=== PATIENT | male | born 2000 | race Caucasian/White ===

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

== ENCOUNTER 2021-03-03 18:58 | Inpatient (IN) | payer BC ==
[2021-03-03] MEDS ORDERED: BACITRACIN OINT 1 EACH PACKET TOPICAL ONE (19:53)
--- NOTE | 2021-03-03 21:53 | ED ---
Psych HPI - General Chief Complaint: Psychiatric Symptoms Stated Complaint: EPS eval Time Seen by Provider: 03/03/21 19:16 Source: patient Mode of arrival: ambulatory - History of Present Illness Initial Comments: Patient is a 20-year-old male, with history of Asperger's and autistic, presenting to the emergency department for a psychiatric evaluation. Patient states he has been having increasing suicidal thoughts over the past few days. He does admit to cutting himself in his upper legs with a razor. He has done this in the past as well.. He denies any homicidal thoughts. He denies any changes in medication but states they did recently prescribed him a new medication but he has yet to start this. He denies any alcohol or drug use. He is nonsmoker. He has no further complaints at this time. - Related Data Home Medications Medication Instructions Recorded Confirmed Acetaminophen [Tylenol 8 Hour] 650 mg PO Q4H PRN 03/03/21 03/03/21 Escitalopram [Lexapro] 10 mg PO DAILY 03/03/21 03/03/21 Fexofenadine HCl [Norma Allergy] 180 mg PO DAILY 03/03/21 03/03/21 Ibuprofen [Advil] 200 mg PO Q8HR PRN 03/03/21 03/03/21 Melatonin 10 mg PO HS PRN 03/03/21 03/03/21 Multivitamins, Thera [Multivitamin 1 tab PO DAILY 03/03/21 03/03/21 (formulary)] Pseudoephedrine HCl [Sudafed 240 mg PO DAILY PRN 03/03/21 03/03/21 24-Hour] cloNIDine HCL [Catapres] 0.2 mg PO BID 03/03/21 03/03/21 clonazePAM 0.5 mg PO BID PRN 03/03/21 03/03/21 Previous Rx's Medication Instructions Recorded ARIPiprazole IM [Abilify Maintena] 400 mg IM Q28D #1 vial 12/24/20 Escitalopram [Lexapro] 20 mg PO DAILY 30 Days tab 12/24/20 busPIRone HCl [Buspar] 30 mg PO BID 30 Days tab 12/24/20 Allergies Allergy/AdvReac Type Severity Reaction Status Date / Time montelukast [From Singulair] AdvReac suicidal Verified 03/03/21 20:25 Review of Systems ROS Statement: Those systems with pertinent positive or pertinent negative responses have been documented in the HPI. ROS Other: All systems not noted in ROS Statement are negative. Past Medical History Past Medical History: No Reported History Additional Past Medical History / Comment(s): seasonal allergies, aspergers, autistic History of Any Multi-Drug Resistant Organisms: None Reported Past Surgical History: No Surgical Hx Reported Past Anesthesia/Blood Transfusion Reactions: No Reported Reaction Past Psychological History: Anxiety, Depression Smoking Status: Never smoker Past Alcohol Use History: None Reported Past Drug Use History: None Reported General Exam - General Exam Comments Initial Comments: GENERAL: Patient is well-developed and well-nourished. Patient is nontoxic and in no acute distress. HEAD: Atraumatic, normocephalic. EYES: Pupils equal round and reactive to light, extraocular movements intact, sclera anicteric, conjunctiva are normal. Eyelids were unremarkable. ENT: TMs normal, nares patent, oropharynx clear without exudates. Moist mucous membranes. NECK: Normal range of motion, supple without lymphadenopathy or JVD. LUNGS: Unlabored respirations. Breath sounds clear to auscultation bilaterally and equal. No wheezes rales or rhonchi. HEART: Regular rate and rhythm without murmurs, rubs or gallops. ABDOMEN: Soft, nontender, normoactive bowel sounds. No guarding, no rebound. No masses appreciated. : Deferred MUSCULOSKELETAL: Normal extremities with adequate strength and normal range of motion, no pitting or edema. No clubbing or cyanosis. NEUROLOGICAL: Patient is alert and oriented x 3. Motor and sensory are also intact. Cranial nerves II through XII grossly intact. Symmetrical smile. Normal speech, normal gait. PSYCH: Normal mood, normal affect. SKIN: Warm, Dry, normal turgor, no rashes. Patient has new and old superficial lacerations to bilateral upper thighs. Patient does have a new or, 6 cm superficial laceration to bilateral upper legs that is a bit more open. It is oozing a little bit of blood but no heavy active bleeding. Limitations: no limitations Course Vital Signs 03/03/21 03/04/21 19:07 02:02 Temperature 98.7 F 98.5 F Pulse Rate 120 H 94 Respiratory 16 20 Rate Blood Pressure 125/69 127/77 O2 Sat by Pulse 99 97 Oximetry Procedures - Procedures Initial comment: Patient has to, 6 cm superficial lacerations, one on either upper thigh. I did clean these wounds, apply Steri-Strips and topical antibiotic. He tolerated procedure well. Medical Decision Making - Medical Decision Making Patient is a 20-year-old male with history of autism, Asperger's, presenting for psychiatric evaluation. He is having suicidal thoughts, increasing over the pa st few days. He does have self-inflicted razor wounds to bilateral upper thighs. I did place Steri-Strips on to these wounds. Denies any drug or alcohol use. His vitals are stable. Patient was evaluated by EPS. Patient will be admitted to the psych unit. - Lab Data Lab Results 03/03/21 03/04/21 Range/Units 21:55 01:33 Urine Opiates Screen Not Detected (NotDetected) Ur Oxycodone Screen Not Detected (NotDetected) Urine Methadone Screen Not Detected (NotDetected) Ur Propoxyphene Screen Not Detected (NotDetected) Ur Barbiturates Screen Not Detected (NotDetected) U Tricyclic Antidepress Not Detected (NotDetected) Ur Phencyclidine Scrn Not Detected (NotDetected) Ur Amphetamines Screen Not Detected (NotDetected) U Methamphetamines Scrn Not Detected (NotDetected) U Benzodiazepines Scrn Not Detected (NotDetected) Urine Cocaine Screen Not Detected (NotDetected) U Marijuana (THC) Screen Not Detected (NotDetected) Coronavirus (PCR) Not Detected (Not Detectd) Disposition Clinical Impression: Suicidal ideation Disposition: TRANSFER TO PSYCH HOSP/UNIT Condition: Stable Is patient prescribed a controlled substance at d/c from ED?: No
[2021-03-03 22:17] LABS: Amphetamine Screen,Urine Not Detected (NotDetected); Barbiturate Screen,Urine Not Detected (NotDetected); Benzodiazepines Screen,Urine Not Detected (NotDetected); Cocaine Screen,Urine Not Detected (NotDetected); Methadone Screen, Urine Not Detected (NotDetected); Opiate Screen,Urine Not Detected (NotDetected); Oxycodone Screen, Urine Not Detected (NotDetected); Phencyclidine Screen,Urine Not Detected (NotDetected); Tricyclic Antidepressant,Urine Not Detected (NotDetected); Urn Cannabinoid Scrn Not Detected (NotDetected)
[2021-03-04] MEDS ORDERED: ACETAMINOPHEN TAB 325 MG TAB PO PRN (01:41)
[2021-03-04] MEDS ORDERED: MAG HYDROX/AL HYDROX/SIMETH 30 ML CUP PO PRN (01:41)
[2021-03-04] MEDS ORDERED: MAGNESIUM HYDROXIDE 2,400 MG/10 ML CUP PO PRN (01:41)
[2021-03-04] MEDS ORDERED: LORazepam 1 MG TAB PO PRN (01:41)
[2021-03-04] MEDS ORDERED: NON FORMULARY DRUG (Acetaminophen [Tylenol 8 Hour] 650 MG Tablet.Er) PO PRN (01:47)
[2021-03-04] MEDS ORDERED: IBUPROFEN 200 MG TAB PO PRN (01:47)
[2021-03-04] MEDS ORDERED: MELATONIN 5 MG TABLET PO PRN (01:47)
[2021-03-04] MEDS ORDERED: clonazePAM 0.5 MG TAB PO PRN (01:47)
[2021-03-04] MEDS: ESCITALOPRAM 20 MG TAB PO SCH (07:59)
[2021-03-04] MEDS: ESCITALOPRAM 10 MG TAB PO SCH (07:59)
[2021-03-04] MEDS: busPIRone HCl 10 MG TAB PO SCH ×2 (08:00→19:33)
[2021-03-04] MEDS: MULTIVITAMINS, THERA 1 EACH TAB PO SCH (08:00)
[2021-03-04] MEDS: LORATADINE 10 MG TAB PO SCH (08:00)
[2021-03-04] MEDS ORDERED: cloNIDine HCL 0.2 MG TAB PO SCH (09:00)
[2021-03-04] MEDS ORDERED: NICOTINE 14MG/24HR PATCH TRANSDERM SCH (09:00)
--- NOTE | 2021-03-04 14:05 | P.CONS ---
History of Present Illness - Reason for Consult Medical clearance - History of Present Illness Patient is a 20-year-old male, with history of Asperger's and autistic, presenting to the emergency department for a psychiatric evaluation and was subsequently admitted to psychiatric floor. Patient was having increasing suicidal thoughts over the past few days. He does admit to cutting himself in his upper legs with a razor. He has done this in the past as well.. He denied any homicidal thoughts. He denies any changes in medication but states they did recently prescribed him a new medication but he has yet to start this. He denies any alcohol or drug use. He is nonsmoker. He has no further complaints at this time. Patient has multiple superficial cuts except for one deep in the left thigh 1 deep on the right side which was glued with a Steri-Strip. Patient does take clonidine for blood pressure Review of Systems REVIEW OF SYSTEMS: CONSTITUTIONAL: No fever, no malaise, no fatigue. HEENT: No recent visual problems or hearing problems. Denied any sore throat. CARDIOVASCULAR: No chest pain, orthopnea, PND, no palpitations, no syncope. PULMONARY: No shortness of breath, no cough, no hemoptysis. GASTROINTESTINAL: No diarrhea, no nausea, no vomiting, no abdominal pain. NEUROLOGICAL: No headaches, no weakness, no numbness. HEMATOLOGICAL: Denies any bleeding or petechiae. GENITOURINARY: Denies any burning micturition, frequency, or urgency. MUSCULOSKELETAL/RHEUMATOLOGICAL: Denies any joint pain, swelling, or any muscle pain. ENDOCRINE: Denies any polyuria or polydipsia. The rest of the 14-point review of systems is negative. Past Medical History Past Medical History: No Reported History Additional Past Medical History / Comment(s): seasonal allergies, aspergers, autistic History of Any Multi-Drug Resistant Organisms: None Reported Past Surgical History: No Surgical Hx Reported Past Anesthesia/Blood Transfusion Reactions: No Reported Reaction Past Psychological History: Anxiety, Depression Smoking Status: Never smoker Past Alcohol Use History: None Reported Past Drug Use History: None Reported Medications and Allergies Home Medications Medication Instructions Recorded Confirmed Type ARIPiprazole IM [Abilify Maintena] 400 mg IM Q28D #1 vial 12/24/20 03/03/21 Rx Escitalopram [Lexapro] 20 mg PO DAILY 30 Days tab 12/24/20 03/03/21 Rx busPIRone HCl [Buspar] 30 mg PO BID 30 Days tab 12/24/20 03/03/21 Rx Acetaminophen [Tylenol 8 Hour] 650 mg PO Q4H PRN 03/03/21 03/03/21 History Escitalopram [Lexapro] 10 mg PO DAILY 03/03/21 03/03/21 History Fexofenadine HCl [Norma Allergy] 180 mg PO DAILY 03/03/21 03/03/21 History Ibuprofen [Advil] 200 mg PO Q8HR PRN 03/03/21 03/03/21 History Melatonin 10 mg PO HS PRN 03/03/21 03/03/21 History Multivitamins, Thera [Multivitamin 1 tab PO DAILY 03/03/21 03/03/21 History (formulary)] Pseudoephedrine HCl [Sudafed 240 mg PO DAILY PRN 03/03/21 03/03/21 History 24-Hour] cloNIDine HCL [Catapres] 0.2 mg PO BID 03/03/21 03/03/21 History clonazePAM 0.5 mg PO BID PRN 03/03/21 03/03/21 History Allergies Allergy/AdvReac Type Severity Reaction Status Date / Time montelukast [From [facility]] AdvReac suicidal Verified 03/03/21 20:25 Physical Exam Vitals: Vital Signs Temp Pulse Pulse Resp BP BP Pulse Ox 03/04/21 07:55 97.8 F 102 H 18 124/67 95 03/04/21 02:44 98.3 F 101 H 18 125/79 97 03/04/21 02:02 98.5 F 94 20 127/77 97 03/03/21 19:07 98.7 F 120 H 16 125/69 99 Intake and Output 03/03/21 03/04/21 03/04/21 22:59 06:59 14:59 Other: Weight 92.986 kg 92.986 kg PHYSICAL EXAMINATION: GENERAL: The patient is alert and oriented x3, not in any acute distress. Well developed, well nourished. HEENT: Pupils are round and equally reacting to light. EOMI. No scleral icterus. No conjunctival pallor. Normocephalic, atraumatic. No pharyngeal erythema. No thyromegaly. CARDIOVASCULAR: S1 and S2 present. No murmurs, rubs, or gallops. PULMONARY: Chest is clear to auscultation, no wheezing or crackles. ABDOMEN: Soft, nontender, nondistended, normoactive bowel sounds. No palpable organomegaly. MUSCULOSKELETAL: No joint swelling or deformity. EXTREMITIES: No cyanosis, clubbing, or pedal edema. She and has multiple superficial linear cuts in both thighs and a couple lacerations one of them has a steady strip. The other side there is an open laceration which I will do and put is Steri-Stripped. NEUROLOGICAL: Gross neurological examination did not reveal any focal deficits. SKIN: No rashes. Assessment and Plan Plan: -Laceration of the left thigh: Will do the skin and put a Steri-Strip on the probably will not require any antibiotics at this time. -Probable essential hypertension patient was on clonidine which will be switched to Coreg. Considering his age patient will have significant side effects from clonidine. -Acute psychosis and other psychiatric issues and suicidal ideation management as per primary service
[2021-03-04] MEDS: BACITRACIN OINT 1 EACH PACKET TOPICAL SCH (15:30)
[2021-03-04] MEDS: carvediloL 12.5 MG TAB PO SCH (17:33)
--- NOTE | 2021-03-04 17:35 | HP ---
DATE OF SERVICE: 03/04/2021 HISTORY AND PHYSICAL IDENTIFYING DATA: The patient is a 20-year-old male. He resides with his parents. He presented to the ED for evaluation. CHIEF COMPLAINT: The patient was depressed. He was having increasing suicide thoughts over the last few days. He has self-abusive behavior of cutting himself with a razor on his inner thighs. He has a diagnosis of Asperger's disorder. HISTORY OF PRESENTING ILLNESS: The patient was the primary source of information, and to some extent what he provided was limited. He has a significant history of psychiatric issues. He has had several admissions to this facility. The last was December 18 of this year. At that time he was admitted for the cutting behavior. At that time he described having "a rough few weeks." He was not clearly able to identify stress issues at that time that set him off to the point where he cut on himself and then came to the hospital. He is noted to have a past history of a suicide gesture by overdose in May of 2020. He was admitted at that time as well. He is followed by [facility]. Current psychotropic medications include Lexapro 30 mg a day, Buspar 30 mg twice a day and Abilify Maintena 400 mg IM q.28 days, with his last dose 02/15/2021. He also is prescribed Klonopin 0.5 mg twice a day p.r.n. Additionally he is prescribed Catapres 0.2 mg twice a day. The patient indicated that he takes that medication as well as a p.r.n., which he says he takes for stress and anxiety. The patient does describe some stress within the family home. He lives with his parents and also his 12-year-old sister. He suggested that he feels some competition with his sister, though he did not give much detail. The patient was vague as to whether or not he experiences any auditory or visual hallucinations. He did not clearly identify past trauma or post- traumatic issues. He does describe anxiety and some panic. He reports that he has been sleeping fair at night. His appetite is good. He indicated that he has been taking his medications consistently. He tolerates his psychotropic medications. He is admitted for further evaluation. SUBSTANCE USE HISTORY: None reported. PAST MEDICAL HISTORY: The patient reports no current or chronic general health complaints. FAMILY AND SOCIAL HISTORY: The patient did not provide much information regarding his current situation. I would refer the reader to previous admission notes of 06/04/2020 and 06/15/2020 for details. MENTAL STATUS EXAMINATION: Patient sat with a little restlessness. He gave fair eye contact. Psychomotor activity was somewhat slowed. He answered questions with brief responses. He tended to speak in a monotone voice. He did not say much. His answers were short though appropriate. His thoughts were clear and coherent. His affect was flat, his mood depressed. He seemed moderately in distress. There was no immediate evidence for thought disorder. The patient denied any suicidal thinking at the time that I interviewed him, though he acknowledged that he had recent behavior of cutting himself on his inner thighs as a stress relief, not for the intent of killing himself. Cognition was clear. ASSESSMENT: This 20-year-old male is diagnosed with mood disorder and autistic spectrum disorder. Unfortunately we do not have a very clear picture at all of recent events or situations that may be a part of his recent decline. We will benefit from input both from family as well as a [facility]. Strengths include that the patient has a stable family/support system. Weaknesses include recurring struggles with mood disorder and self-abusive behavior. DIAGNOSES: 1. Mood disorder. 2. Rule out major depression without psychotic features. 3. Autistic spectrum disorder. RECOMMENDATIONS: The patient will be admitted for comprehensive medical, psychiatric and psychosocial evaluation. We will engage the patient in individual and group therapeutic activities. I will continue the patient on Lexapro 30 mg a day and BuSpar 30 mg twice a day. We will continue with one-to-one observation due to the risk for patient self- abusing, which has been a persistent problem in his previous admissions as well. We will seek to get further input from family and [facility] in order to better determine the treatment plan and to work towards discharge planning. We will focus on stabilization and discharge planning. MMBAYRONL / DANGELON: [id number] / CASH
[2021-03-05] MEDS: MULTIVITAMINS, THERA 1 EACH TAB PO SCH (08:12)
[2021-03-05] MEDS: BACITRACIN OINT 1 EACH PACKET TOPICAL SCH (08:12)
[2021-03-05] MEDS: busPIRone HCl 10 MG TAB PO SCH ×2 (08:12→21:25)
[2021-03-05] MEDS: ESCITALOPRAM 10 MG TAB PO SCH (08:12)
[2021-03-05] MEDS: ESCITALOPRAM 20 MG TAB PO SCH (08:12)
[2021-03-05] MEDS: LORATADINE 10 MG TAB PO SCH (08:13)
[2021-03-05] MEDS: carvediloL 12.5 MG TAB PO SCH ×2 (08:13→14:52)
[2021-03-05] MEDS ORDERED: HALOPERIDOL LACTATE 5 MG/ML 1 ML VIAL ONE (09:36)
[2021-03-05] MEDS: HALOPERIDOL LACTATE 5 MG/ML 1 ML VIAL IM PRN (09:43)
--- NOTE | 2021-03-05 14:55 | PN ---
PROGRESS NOTE DATE OF SERVICE: 03/05/2021. CHIEF COMPLAINT: The patient was depressed. He was having increasing suicide thoughts over the last few days. He had self-abusive behavior cutting himself with a razor on his inner thighs. He has a diagnosis of Asperger's disorder. INTERVAL HISTORY: Patient has been doing fair. He had a quiet evening yesterday. He slept fairly well last night. Today he has been up. He continues to isolate. He does not attend groups noted. It is noted this morning he started getting quite anxious and then made efforts to take his wounds from his cuts on the thighs. He received Haldol 5 mg IM. He was placed on one-to-one observation. He napped some on and off after receiving the Haldol. He has for the most part been quiet since then. He did not voice any specific complaints or concerns about his situation or medications. He appears to tolerate his psychotropic medications. MENTAL STATUS: Patient was seen earlier in the day. He gave fair eye contact. He was somewhat restless. He answered questions with brief responses. He did not say a lot. His affect was blunted. His mood reserved. He seemed somewhat distressed. It was difficult to assess for thought disorder. He voiced no thoughts of harm at the time I interviewed him. Later on, he was in a more anxious state and making efforts to pick at fresh wounds on his inner thighs. As such, he was placed on one-to-one. He was oriented to his circumstances and surroundings. ASSESSMENT: I will continue current diagnosis and general treatment plan. I will continue to make efforts to engage the patient in individual and group therapeutic activities. I will start the patient on Zyprexa 5 mg 3 times a day. The aim of Zyprexa is to help reduce physiologic stress response relating to his high anxiety state. I would aim to see if the Zyprexa helps augment his antidepressant namely Lexapro. If we do not see improvement in 3-4 days, I would look at possibly switching to an alternative antidepressant. It is noteworthy that clozapine has been a beneficial medication for a variety of patients with autism spectrum disorder that may be a consideration for this patient. We do need to [facility] with [facility]. We will focus on stabilization and discharge planning. MMBAYRONL / DANGELON: [id number] /
[2021-03-05] MEDS: OLANZapine 5 MG TAB PO SCH ×2 (15:04→21:25)
[2021-03-05 16:07] LABS: Basophils % (A) 1 %; Eosinophils # (A) 0.2 k/uL (0-0.7); Eosinophils % (A) 3 %; HCT 45.7 % (39.0-53.0); HGB 15.9 gm/dL (13.0-17.5); Lymphocytes # (A) 3.4 k/uL (1.0-4.8); Lymphocytes % (A) 37 %; MCH 29.7 pg (25.0-35.0); MCHC 34.7 g/dL (31.0-37.0); MCV 85.7 fL (80.0-100.0); Mean Platelet Volume 6.3; Monocytes # (A) 0.5 k/uL (0-1.0); Monocytes % (A) 6 %; Neutrophils # (A) 4.7 k/uL (1.3-7.7); Neutrophils % (A) 53 %; Platelet Count 252 k/uL (150-450); RBC 5.34 m/uL (4.30-5.90); RDW 12.7 % (11.5-15.5)
[2021-03-05 16:18] LABS: ALT 15 U/L (4-49); AST 28 U/L (17-59); African American GFR (CKD) >90 (>60 ml/min/1.73 sqM); Albumin 4.9 g/dL (3.5-5.0); Alkaline Phosphatase 99 U/L (38-126); Anion Gap 11 mmol/L; Blood Urea Nitrogen 17 mg/dL (9-20); Calcium 9.7 mg/dL (8.4-10.2); Carbon Dioxide 24 mmol/L (22-30); Chloride 107 mmol/L (98-107); Cholesterol 192 mg/dL (<200); Glucose 115 mg/dL (74-99); HDL Cholesterol 34 mg/dL (40-60); LDL Cholesterol,Calculated 81 mg/dL (0-99); Non-African American GFR(CKD) >90 (>60 ml/min/1.73 sqM); Potassium 4.3 mmol/L (3.5-5.1); Sodium 142 mmol/L (137-145); Total Bilirubin 1.3 mg/dL (0.2-1.3); Total Protein 8.1 g/dL (6.3-8.2); Triglycerides 385 mg/dL (<150)
[2021-03-06 01:32] LABS: Hemoglobin A1C 5.2 % (4.0-6.0)
[2021-03-06] MEDS: busPIRone HCl 10 MG TAB PO SCH ×2 (08:23→20:53)
[2021-03-06] MEDS: LORATADINE 10 MG TAB PO SCH (08:23)
[2021-03-06] MEDS: BACITRACIN OINT 1 EACH PACKET TOPICAL SCH (08:23)
[2021-03-06] MEDS: ESCITALOPRAM 20 MG TAB PO SCH (08:23)
[2021-03-06] MEDS: ESCITALOPRAM 10 MG TAB PO SCH (08:23)
[2021-03-06] MEDS: MULTIVITAMINS, THERA 1 EACH TAB PO SCH (08:24)
[2021-03-06] MEDS: OLANZapine 5 MG TAB PO SCH ×3 (08:24→20:53)
[2021-03-06] MEDS: carvediloL 12.5 MG TAB PO SCH (08:24)
[2021-03-06] MEDS: HALOPERIDOL LACTATE 5 MG/ML 1 ML VIAL IM PRN (09:12)
[2021-03-06] MEDS ORDERED: clonazePAM 1 MG TAB PO PRN (14:42)
--- NOTE | 2021-03-06 14:54 | P.PN ---
Progress Note - Text Progress Note Date: 03/06/21 Clinical Problems: Unspecified mood disorder, rule out major depressive disorder with psychotic features, autistic spectrum disorder Interim history: I reviewed the medical record and interviewed the patient. He complained about the medication change made by the medical intern. He stated he does not have a history of hypertension and the psychiatrist at [facility] prescribed clonidine for the treatment of mood, behavior anxiety symptoms. He requested to be placed back on clonidine .2 mg twice a day when necessary. He also complained about this admission. He complained that the unit is noisy and he does not feel comfortable on the unit. He remains on one-to-one and continues to struggle with urges to pick at the lacerations on his thigh. He denied that he is currently experiencing suicidal thoughts. He denied that he is currently experiencing auditory or visual hallucinations. Mental status exam: Presented as a casually groomed bespectacled young male who was pleasant on approach. He made eye contact and attended to the interview. He had multiple lacerations on his thigh that were in various stages of healing. He showed no abnormality of psychomotor activity. His speech was spontaneous with decreased rate, range and volume. He denied suicidal ideation or wishes. He denied homicidal ideation. He expressed feelings of hopelessness and helplessness. He ruminated about his medications. He did not express ideas reference, paranoid ideation or delusions. His thinking was concrete but his associations were coherent, logical and goal directed. Assessment: He remains on one-to-one due to continued urges to pick at his lacerations. Plan: Continue inpatient treatment. Continue one-to-one. Continue BuSpar 30 mg twice a day, Lexapro 30 mg daily, melatonin 10 mg at bedtime when necessary olanzapine 5 mg 3 times a day. Discontinue Coreg and restart clonidine .2 mg twice a day when necessary for anxiety or agitation.
[2021-03-07] MEDS: ESCITALOPRAM 20 MG TAB PO SCH (08:18)
[2021-03-07] MEDS: BACITRACIN OINT 1 EACH PACKET TOPICAL SCH (08:18)
[2021-03-07] MEDS: busPIRone HCl 10 MG TAB PO SCH ×2 (08:18→20:35)
[2021-03-07] MEDS: ESCITALOPRAM 10 MG TAB PO SCH (08:18)
[2021-03-07] MEDS: MULTIVITAMINS, THERA 1 EACH TAB PO SCH (08:19)
[2021-03-07] MEDS: OLANZapine 5 MG TAB PO SCH ×3 (08:19→21:03)
[2021-03-07] MEDS: LORATADINE 10 MG TAB PO SCH (08:20)
[2021-03-07 09:25] VITALS: RESP 20; TEMP 97.7
--- NOTE | 2021-03-07 11:53 | P.PN ---
Progress Note - Text Progress Note Date: 03/07/21 Clinical Problems: Major depressive disorder with psychotic features, autistic spectrum disorder Interim history: I reviewed the medical record and interviewed the patient. His only complaint was difficulty sleeping last night that he attributed to disruptions on the unit. He continues to struggle with thoughts of self-harm and remains on one-to-one due to picking at the lacerations on his thigh. He would not assure me that he did not would attempt to self-harm if he were off one-to-one. He described a history of nonlethal self-harm (primarily cutting beginning when he was about 9 years old. He stated that the behavior was under control for about 2 years. He relapsed to the behavior last summer. He attributes the recurrence to difficulties that he had imposed by the pandemic. He complains of continued feelings of depression and thoughts of cutting himself. He denied that he is currently experiencing suicidal thoughts. He denied that he is experiencing auditory or visual hallucinations. Mental status exam: He was casually groomed pleasant and engaging.. He made eye contact and attended to the interview. He had no new cuts or abrasions on his leg. He showed no abnormality of psychomotor activity. His speech was spontaneous with normal rate, range and volume. His affect was bright and reactive. He denied suicidal ideation or wishes. He denied homicidal ideation. He expressed feelings of hopelessness and helplessness. He ruminated about his medications. He did not express ideas reference, paranoid ideation or delusions. His thinking was concrete but his associations were coherent, logical and goal directed. Assessment: He has a long history of nonlethal self-harm. He remains on one-to-one due to continued urges to pick at his lacerations. Plan: Continue inpatient treatment. Continue one-to-one. Continue BuSpar 30 mg twice a day, Lexapro 30 mg daily, melatonin 10 mg at bedtime when necessary olanzapine 5 mg 3 times a day. Discontinue Coreg and restart clonidine .2 mg twice a day when necessary for anxiety or agitation. Encourage participation in therapeutic groups and activities. Evaluate clinical status response to treatment daily basis.
[2021-03-07] MEDS: cloNIDine HCL 0.2 MG TAB PO PRN (19:49)
[2021-03-08] MEDS: busPIRone HCl 10 MG TAB PO SCH ×2 (08:36→20:26)
[2021-03-08] MEDS: LORATADINE 10 MG TAB PO SCH (08:37)
[2021-03-08] MEDS: MULTIVITAMINS, THERA 1 EACH TAB PO SCH (08:37)
[2021-03-08] MEDS: OLANZapine 5 MG TAB PO SCH ×3 (08:37→20:26)
[2021-03-08] MEDS: ESCITALOPRAM 20 MG TAB PO SCH (08:37)
[2021-03-08] MEDS: ESCITALOPRAM 10 MG TAB PO SCH (08:37)
[2021-03-08] MEDS: BACITRACIN OINT 1 EACH PACKET TOPICAL SCH (08:37)
--- NOTE | 2021-03-08 09:35 | P.PN ---
Progress Note - Text Progress Note Date: 03/08/21 Interval History: Patient was seen sitting on his bed in his room with his sitter at his side and was directable and agreeable to speak with insurance underwriter in the office. Patient appeared to be fairly cooperative today during the interview. He spoke about feeling "on and off" since being in the hospital and was fairly vague about what this meant. He intellectualizes his feelings and his symptoms. He appears to have fairly poor insight into what triggered him to feel suicidal before coming into the hospital. He denies any stressors recently or any problems with his parents. He claims that he is not interested in going to groups since he has been here on the unit and claims that he is tolerating the medications well. He states that he will be due for his next Abilify Maintenna injections soon. He claims that his mood as been gradually improving and claims that his anxiety has been mildly improving as well since being in the hospital. At this time patient denies any current suicidal or homical ideations, intent or plan. Patient denies any auditory, visual hallucinations and denies any paranoia or delusions. Patient denies any side effects from the medications and has been compliant with meds. Mental Status Exam: General Appearance: Patient appears to be overweight, stated age is alert, directable, and attempts to be cooperative. Behavior: Patient is calmly seated without any agitated behavior. Speech: Patient's speech is fluent and nonpressured. Mood/Affect: Mood and anxiety is improving mildly, affect is congruent and constricted. Suicidality/Homicidality: Patient denies having any suicidal or homicidal ideation intent or plan. Perceptions: Patient denies any visual hallucinations and denies any auditory hallucinations Though content/process: [place], intellectualizes. Goal oriented. Memory and concentration: AOX3, grossly intact for the purposes of this session Judgment and insight: Chronically poor, Improving mildly Assessment Major depressive disorder, recurrent, severe borderline personality traits Anxiety disorder unspecified Autism spectrum disorder Plan: -Patient continues to meet criteria for inpatient psychiatric admission for symptom stabilization and safety. Patient has signed adult voluntary form and medication consent and was placed in patient's chart. -Medications: 1 continue with Zyprexa 5 mg 3 times a day for mood stabilization/psychosis. Patient is still receiving Abilify Maintenna long- acting injection monthly however will confirm with [facility] and his next dose is due. Continue BuSpar 30 mg twice a day for anxiety, 10 mg melatonin daily at bedtime when necessary for insomnia. Klonopin 2 mg twice a day when necessary for anxiety. Lexapro 30 mg daily for mood/anxiety. Clonidine 0.2 mg twice a day when necessary for anxiety. -When necessary Ativan and Haldol for agitation/aggression. -NRT - not needed as patient does not smoke -SW on board for discharge planning. Encouraged the patient to participate in milieu. Will coordinate with [facility] once patient is discharged for a closer outpatient follow-up. Likely discharge in 1-2 days.
[2021-03-08] MEDS: cloNIDine HCL 0.2 MG TAB PO PRN (16:55)
[2021-03-08 16:56] VITALS: BP 154/68; PULSE 107
[2021-03-09] MEDS: BACITRACIN OINT 1 EACH PACKET TOPICAL SCH ×2 (08:22→11:36)
[2021-03-09] MEDS: ESCITALOPRAM 20 MG TAB PO SCH (08:24)
[2021-03-09] MEDS: MULTIVITAMINS, THERA 1 EACH TAB PO SCH (08:24)
[2021-03-09] MEDS: ESCITALOPRAM 10 MG TAB PO SCH (08:24)
[2021-03-09] MEDS: OLANZapine 5 MG TAB PO SCH (08:24)
[2021-03-09] MEDS: busPIRone HCl 10 MG TAB PO SCH (08:24)
[2021-03-09] MEDS: LORATADINE 10 MG TAB PO SCH (08:24)
[2021-03-09] MEDS ORDERED: clonazePAM 1 MG TAB PO PRN (09:26)
--- NOTE | 2021-03-09 10:10 | P.DS ---
Providers Date of admission: 03/04/21 01:36 Expected date of discharge: 03/09/21 Attending physician: Robert Shea MD Consults: 03/04/21 01:41 Consult Physician Routine Consulting Provider: Yenni Nielsen Consult Reason/Comments: H and P Do you want consulting provider notified?: Yes, Notify in am Primary care physician: Oziel Rios - Discharge Diagnosis(es) (1) Major depressive disorder, recurrent Current Visit: Yes Status: Acute Priority: High (2) Borderline personality disorder Current Visit: Yes Status: Acute Priority: Medium (3) Anxiety disorder, unspecified Current Visit: Yes Status: Acute Priority: Medium (4) Autism spectrum disorder Current Visit: Yes Status: Acute Priority: Medium Hospital Course: Admission HPI: Admission note was completed by Dr. Boss "the patient is a 20-year-old male. He resides with his parents. He presented to the ED for evaluation. The patient was depressed. He was having increasing suicidal thoughts over the last few days. He has self abusive behavior of cutting himself with a razor on his inner thighs. He has a diagnosis of Asperger's disorder. Patient was the primary source of information and to some extent what he provided was limited. He has a significant history of psychiatric issues. He has had several admissions the facility. The last was December 18 of this year. At that time he was admitted for the cutting behavior. At that time he described having "a rough few weeks." He was not clear that able to identify stress issues at that time that sent him off to the point where he cut himself and then came to the hospital. He is noted to have a past history of suicide gestures by overdose in May 2020. He was admitted at that time as well. He is followed by [facility]. Current psychotropic medications include Lexapro 30 mg a day BuSpar 30 mg twice a day and Abilify Maintenna 400 mg IM every 28 days and his last dose was 02/15/21. He is also prescribed Klonopin 0.5 mg twice a day when necessary. He additionally is prescribed Catapres 0.2 mg twice a day. The patient indicated that he takes that medication as well as when necessary. The patient does describe some stress within the family home. He lives with his parents and also his 12-year-old sister he suggested that he feels some competition with his sister though did not give much detail. The patient is vague as to whether or not he experiences any auditory or visual hallucinations. He did not clearly identify past trauma or posttraumatic stress issues. He does describe anxiety and some panic. He reports that he has been sleeping fair at night. His appetite is good. He indicated that he has been taking his medication consistently. He tolerates his psychotropic medications. He is admitted for further evaluation." Hospital course: Upon admission to the unit patient was initially cooperative, directable and agreeable to commence treatment and signed adult voluntary form. Patient got along well with other patients on the unit and followed unit protocol. Patient was compliant with the medications and denied any side effects throughout hospital course. Patient had a one-to-one sitter for the duration of his hospitalization. Patient was started on Zyprexa by mouth 5 mg 3 times a day which was decreased down to twice a day for mood stabilization/psychosis. Patient was also started on BuSpar 30 mg twice a day for anxiety, melatonin 10 mg daily at bedtime for insomnia and also Klonopin when necessary for anxiety. Patient was also restarted on Lexapro 30 mg daily for mood/anxiety and clonidine 0.2 mg twice a day when necessary for anxiety. Patient is currently on Abilify Maintenna 400 mg IM every monthly however did not receive another dose on the unit and will be due for his next dose on March 17 at [facility]. Patient spoke of his stressors and engaged in individual therapy only. Patient was also seen by medical team for history and physical exam. Throughout the course of the hospitalization patient gradually improved with regards to mood, anxiety, sleep and return back to his previous baseline level functioning. On the day of discharge patient denied any suicidal or homicidal ideations intent or plan denied any auditory or visual hallucinations. Patient endorsed wanting to live for his future and family. The patient denied any access to guns or weapons. Patient denied any paranoia and did not endorse any delusions. Patient does not have a significant history of substance abuse however was counseled on abstaining from all substances including alcohol and marijuana. Patient was also counseled on the medications and need for regular compliance and was encouraged to follow-up with their outpatient appointment for mental health and also for primary care. Prior to discharge a family meeting will be arranged by social human services assistants to answer any questions and ensure safety upon discharge. Due to patient's frequent rehospitalizations, [facility] will be enrolling patient in the Next Step program for closer monitoring. Mental status exam: General Appearance: Patient appears to be overweight, stated age is alert, pleasant, and attempts to be cooperative. Patient is in no acute distress and has improved hygiene and grooming Behavior: Patient is calmly seated without any agitated behavior. Speech: Patient's speech is fluent and nonpressured. Mood/Affect: Patient reports their mood is "better", affect is congruent and euthymic. Suicidality/Homicidality: Patient denies having any suicidal or homicidal ideation intent or plan. Perceptions: Patient denies any auditory or visual hallucinations. Though content/process: There is no evidence of any delusional thought content and thought process is linear and goal-directed. [place]. Memory and concentration: AOX3, grossly intact for the purposes of this session. Can spell "WORLD" backwards correctly. Judgment and insight: Chronically impulsive, improved with guarded prognosis Impression: Major depressive disorder, recurrent, severe Anxiety disorder unspecified Borderline personality disorder Autism spectrum disorder Plan: -Continue with discharge today as patient has improved and stabilized psychiatrically and is not currently an imminent threat to himself and/or others. Patient will remain at chronically elevated risk for harm to self and/or others due to his impulsivity and hx of self harm/cutting. -Continue medications: Lexapro 30 mg daily for mood/anxiety, clonidine 0.2 mg twice a day when necessary for anxiety, melatonin 10 mg daily at bedtime for insomnia, Klonopin 1 mg daily when necessary for anxiety, Zyprexa 5 mg twice a day her mood stabilization/psychosis. Patient is also on Abilify Maintenna 400 mg IM every monthly and will be due for his next dose on March 17 at [facility]. -Patient was counseled on the need for medication compliance and appropriate follow-up at mental health and also primary care for medical issues. Patient verbalized understanding and agreed. -Social work to arrange for and conduct family meeting to ensure safety upon discharge and answer any questions/concerns. Social work also to arrange for patients follow up appointments with [facility] for psychiatric care along with follow up with primary care provider. -Due to patient's frequent rehospitalizations, [facility] will be enrolling patient in the Next Step program for closer monitoring. -Patient counseled on abstaining from recreational drugs and marijuana and alcohol. Was informed/educated on the adverse effects on their physical and mental health. Patient verbally agreed and understood. -Patient was instructed to return to the hospital or seek immediate medical care if their psychiatric or medical symptoms do worsen or reoccur. Allergies Allergy/AdvReac Type Severity Reaction Status Date / Time montelukast [From [facility]] AdvReac suicidal Verified 03/03/21 20:25 Laboratory Results WBC 9.0 k/uL (4.0-11.0) 03/05/21 15:49 RBC 5.34 m/uL (4.30-5.90) 03/05/21 15:49 Hgb 15.9 gm/dL (13.0-17.5) 03/05/21 15:49 Hct 45.7 % (39.0-53.0) 03/05/21 15:49 MCV 85.7 fL (80.0-100.0) 03/05/21 15:49 MCH 29.7 pg (25.0-35.0) 03/05/21 15:49 MCHC 34.7 g/dL (31.0-37.0) 03/05/21 15:49 RDW 12.7 % (11.5-15.5) 03/05/21 15:49 Plt Count 252 k/uL (150-450) 03/05/21 15:49 MPV 6.3 03/05/21 15:49 Neutrophils % 53 % 03/05/21 15:49 Lymphocytes % 37 % 03/05/21 15:49 Monocytes % 6 % 03/05/21 15:49 Eosinophils % 3 % 03/05/21 15:49 Basophils % 1 % 03/05/21 15:49 Neutrophils # 4.7 k/uL (1.3-7.7) 03/05/21 15:49 Lymphocytes # 3.4 k/uL (1.0-4.8) 03/05/21 15:49 Monocytes # 0.5 k/uL (0-1.0) 03/05/21 15:49 Eosinophils # 0.2 k/uL (0-0.7) 03/05/21 15:49 Basophils # 0.0 k/uL (0-0.2) 03/05/21 15:49 Sodium 142 mmol/L (137-145) 03/05/21 15:49 Potassium 4.3 mmol/L (3.5-5.1) 03/05/21 15:49 Chloride 107 mmol/L (98-107) 03/05/21 15:49 Carbon Dioxide 24 mmol/L (22-30) 03/05/21 15:49 Anion Gap 11 mmol/L 03/05/21 15:49 BUN 17 mg/dL (9-20) 03/05/21 15:49 Creatinine 0.84 mg/dL (0.66-1.25) 03/05/21 15:49 Est GFR (CKD-EPI)AfAm >90 (>60 ml/min/1.73 sqM) 03/05/21 15:49 Est GFR (CKD-EPI)NonAf >90 (>60 ml/min/1.73 sqM) 03/05/21 15:49 Glucose 115 mg/dL (74-99) H 03/05/21 15:[address] Glu mg/dL 103 03/05/21 15:49 Hemoglobin A1c 5.2 % (4.0-6.0) 03/05/21 15:49 Calcium 9.7 mg/dL (8.4-10.2) 03/05/21 15:49 Total Bilirubin 1.3 mg/dL (0.2-1.3) 03/05/21 15:49 AST 28 U/L (17-59) 03/05/21 15:49 ALT 15 U/L (4-49) 03/05/21 15:49 Alkaline Phosphatase 99 U/L (38-126) 03/05/21 15:49 Total Protein 8.1 g/dL (6.3-8.2) 03/05/21 15:49 Albumin 4.9 g/dL (3.5-5.0) 03/05/21 15:49 Triglycerides 385 mg/dL (<150) H 03/05/21 15:49 Cholesterol 192 mg/dL (<200) 03/05/21 15:49 LDL Cholesterol, Calc 81 mg/dL (0-99) 03/05/21 15:49 HDL Cholesterol 34 mg/dL (40-60) L 03/05/21 15:49 TSH 0.710 mIU/L (0.465-4.680) 03/05/21 15:49 Urine Opiates Screen Not Detected (NotDetected) 03/03/21 21:55 Ur Oxycodone Screen Not Detected (NotDetected) 03/03/21 21:55 Urine Methadone Screen Not Detected (NotDetected) 03/03/21 21:55 Ur Propoxyphene Screen Not Detected (NotDetected) 03/03/21 21:55 Ur Barbiturates Screen Not Detected (NotDetected) 03/03/21 21:55 U Tricyclic Antidepress Not Detected (NotDetected) 03/03/21 21:55 Ur Phencyclidine Scrn Not Detected (NotDetected) 03/03/21 21:55 Ur Amphetamines Screen Not Detected (NotDetected) 03/03/21 21:55 U Methamphetamines Scrn Not Detected (NotDetected) 03/03/21 21:55 U Benzodiazepines Scrn Not Detected (NotDetected) 03/03/21 21:55 Urine Cocaine Screen Not Detected (NotDetected) 03/03/21 21:55 U Marijuana (THC) Screen Not Detected (NotDetected) 03/03/21 21:55 Coronavirus (PCR) Not Detected (Not Detectd) 03/04/21 01:33 Vital Signs Temp 97.7 F 03/07/21 08:20 Pulse 107 H 03/08/21 16:56 Resp 20 03/08/21 16:56 BP 154/68 03/08/21 16:56 Pulse Ox 98 03/05/21 08:33 Patient Condition at Discharge: Stable Plan - Discharge Summary Discharge Rx Participant: No New Discharge Prescriptions: New cloNIDine HCL [Catapres] 0.2 mg PO BID PRN 30 Days tab PRN Reason: Anxiety or restlessness clonazePAM [KlonoPIN] 1 mg PO DAILY PRN 14 Days tab PRN Reason: Anxiety Melatonin 10 mg PO HS PRN 30 Days tablet PRN Reason: sleep Acetaminophen Tab [Tylenol] 650 mg PO Q4HR PRN tab PRN Reason: Pain/Discomfort Loratadine [Claritin] 10 mg PO DAILY tab Multivitamins, Thera [Multivitamin (formulary)] 1 each PO DAILY 30 Days tab OLANZapine [ZyPREXA] 5 mg PO BID 30 Days tab Continue ARIPiprazole IM [Abilify Maintena] 400 mg IM Q28D #1 vial busPIRone HCl [Buspar] 30 mg PO BID 30 Days tab Escitalopram [Lexapro] 20 mg PO DAILY 30 Days tab Escitalopram [Lexapro] 10 mg PO DAILY 30 Days tab Discontinued clonazePAM 0.5 mg PO BID PRN PRN Reason: Anxiety Fexofenadine HCl [Norma Allergy] 180 mg PO DAILY Ibuprofen [Advil] 200 mg PO Q8HR PRN PRN Reason: Pain Or Fever > 100.5 Acetaminophen [Tylenol 8 Hour] 650 mg PO Q4H PRN PRN Reason: Pain Or Fever > 100.5 cloNIDine HCL [Catapres] 0.2 mg PO BID Melatonin 10 mg PO HS PRN PRN Reason: sleep Multivitamins, Thera [Multivitamin (formulary)] 1 tab PO DAILY Pseudoephedrine HCl [Sudafed 24-Hour] 240 mg PO DAILY PRN PRN Reason: Cold Symptoms Discharge Medication List ARIPiprazole IM [Abilify Maintena] 400 mg IM Q28D #1 vial 12/24/20 [Rx] Acetaminophen Tab [Tylenol] 650 mg PO Q4HR PRN tab 03/09/21 [Rx] Escitalopram [Lexapro] 10 mg PO DAILY 30 Days tab 03/09/21 [Rx] Escitalopram [Lexapro] 20 mg PO DAILY 30 Days tab 03/09/21 [Rx] Loratadine [Claritin] 10 mg PO DAILY tab 03/09/21 [Rx] Melatonin 10 mg PO HS PRN 30 Days tablet 03/09/21 [Rx] Multivitamins, Thera [Multivitamin (formulary)] 1 each PO DAILY 30 Days tab 03/09/21 [Rx] OLANZapine [ZyPREXA] 5 mg PO BID 30 Days tab 03/09/21 [Rx] busPIRone HCl [Buspar] 30 mg PO BID 30 Days tab 03/09/21 [Rx] cloNIDine HCL [Catapres] 0.2 mg PO BID PRN 30 Days tab 03/09/21 [Rx] clonazePAM [KlonoPIN] 1 mg PO DAILY PRN 14 Days tab 03/09/21 [Rx] Follow up Appointment(s)/Referral(s): Oziel Rios DO [Primary Care Provider] - 1-2 days Activity/Diet/Wound Care/Special Instructions: Activity and diet as tolerated. Avoid the use of street drugs and alcohol. Take all medications as prescribed. When you are in need of refills on your medications please contact your medical provider and/or outpatient psychiatrist to have this done. Please go to scheduled outpatient appointment for aftercare treatment. If symptoms return or become worse, call the crisis line at and/or go to the nearest emergency room for evaluation. Discharge Disposition: HOME SELF-CARE
== END 2021-03-09 13:52 | disposition home or self-care (01) | DRG 885 ==
LOC: EC 18:58 → 3MHU 03-04 01:36
PROVIDERS: ADMIT Psychiatry & Neurology Psychiatry; ATTEND Psychiatry & Neurology Psychiatry
DX: F33.3 Major depressive disorder, recurrent, severe with psychotic symptoms (principal); F41.1 Generalized anxiety disorder; F60.3 Borderline personality disorder; F84.5 Asperger's syndrome; X78.8XXA Intentional self-harm by other sharp object, initial encounter; Z79.899 Other long term (current) drug therapy; Z91.5 Personal history of self-harm; Z20.822 Contact with and (suspected) exposure to COVID-19
CPT/HCPCS: 80053; 80061; 80306; 82075; 83036; 84443; 85025; 87635; 99285

== ENCOUNTER → 2021-04-20 | Outpatient (CLI) | payer BC ==
--- NOTE | 2021-04-20 12:51 | XR ---
Left knee HISTORY: Pain, trauma last week 3 views of left knee There may be minimal joint effusion and suprapatellar location. Bone mineralization, joint spaces and alignment are maintained. IMPRESSION: No acute fracture or dislocation is evident. Knee MRI may be of benefit.
== END | disposition home or self-care (01) ==
LOC: RADXRYALE 11:08
PROVIDERS: ATTEND Physician Assistant Medical
DX: M25.562 Pain in left knee (principal)

== ENCOUNTER 2021-07-29 20:42 | Emergency (ER) | payer BC ==
[2021-07-29 20:51] VITALS: RESP 18; TEMP 98.2
--- NOTE | 2021-07-29 22:17 | ED ---
Psych HPI - General Chief Complaint: Psychiatric Symptoms Stated Complaint: Mental health Time Seen by Provider: 07/29/21 21:09 Source: patient, EMS, RN notes reviewed, old records reviewed Mode of arrival: EMS Limitations: no limitations - History of Present Illness Initial Comments: This is a 20-year-old male to the emergency department today. Patient's presents today for evaluation or psychiatric illnesses denying drug or alcohol abuse currently. Patient is brought by EMS does admit to suicidal thoughts MD Complaint: suicidal ideation, feels depressed -: days(s) Associated Psychiatric Symptoms: depression Quality: constant Improves With: none Worsens With: none Context: not taking psychiatric medications Associated Symptoms: denies other symptoms Treatments Prior to Arrival: placed on mental health hold If Self Harm: admits thoughts of self harm - Related Data Home Medications Medication Instructions Recorded Confirmed Cetirizine HCl [Zyrtec] 10 mg PO DAILY PRN 07/29/21 07/29/21 Citalopram Hydrobromide [CeleXA] 10 mg PO DAILY 07/29/21 07/29/21 Citalopram Hydrobromide [CeleXA] 20 mg PO DAILY 07/29/21 07/29/21 Ibuprofen/Diphenhydramine HCl 1 tab PO HS PRN 07/29/21 07/29/21 [Advil Pm Liqui-Gels] Pseudoephedrine HCl [Sudafed 240 mg PO DAILY PRN 07/29/21 07/29/21 24-Hour] busPIRone HCL 30 mg PO BID 07/29/21 07/29/21 Previous Rx's Medication Instructions Recorded ARIPiprazole IM [Abilifangie Maintena] 400 mg IM Q28D #1 vial 12/24/20 Acetaminophen Tab [Tylenol] 650 mg PO Q4HR PRN tab 03/09/21 Melatonin 10 mg PO HS PRN 30 Days tablet 03/09/21 Multivitamins, Thera [Multivitamin 1 each PO DAILY 30 Days tab 03/09/21 (formulary)] OLANZapine [ZyPREXA] 5 mg PO BID 30 Days tab 03/09/21 cloNIDine HCL [Catapres] 0.2 mg PO BID PRN 30 Days tab 03/09/21 Allergies Allergy/AdvReac Type Severity Reaction Status Date / Time montelukast [From [facility]] AdvReac suicidal Verified 07/29/21 21:58 Review of Systems ROS Statement: Those systems with pertinent positive or pertinent negative responses have been documented in the HPI. ROS Other: All systems not noted in ROS Statement are negative. Past Medical History Past Medical History: No Reported History Additional Past Medical History / Comment(s): seasonal allergies, aspergers, autistic History of Any Multi-Drug Resistant Organisms: None Reported Past Surgical History: No Surgical Hx Reported Past Anesthesia/Blood Transfusion Reactions: No Reported Reaction Past Psychological History: Anxiety, Depression Smoking Status: Never smoker Past Alcohol Use History: None Reported Past Drug Use History: None Reported General Exam Limitations: no limitations General appearance: alert, in no apparent distress, anxious Head exam: Present: atraumatic, normocephalic, normal inspection Eye exam: Present: normal appearance, PERRL, EOMI. Absent: scleral icterus, conjunctival injection, periorbital swelling ENT exam: Present: normal exam, mucous membranes moist Neck exam: Present: normal inspection. Absent: tenderness, meningismus, lymphadenopathy Respiratory exam: Present: normal lung sounds bilaterally. Absent: respiratory distress, wheezes, rales, rhonchi, stridor Cardiovascular Exam: Present: normal rhythm, tachycardia, normal heart sounds. Absent: systolic murmur, diastolic murmur, rubs, gallop, clicks GI/Abdominal exam: Present: soft, normal bowel sounds. Absent: distended, tenderness, guarding, rebound, rigid Extremities exam: Present: normal inspection, full ROM, normal capillary refill. Absent: tenderness, pedal edema, joint swelling, calf tenderness Back exam: Present: normal inspection Neurological exam: Present: alert, oriented X3, CN II-XII intact Psychiatric exam: Present: normal affect, normal mood Skin exam: Present: warm, dry, intact, normal color. Absent: rash Course Vital Signs 07/29/21 07/30/21 20:43 00:13 Temperature 98.2 F 98.2 F Pulse Rate 108 H 104 H Respiratory 18 18 Rate Blood Pressure 126/73 124/78 O2 Sat by Pulse 96 96 Oximetry - Reevaluation(s) Reevaluation #1: Medical record is reviewed Medical clear for psychiatric evaluation Medical Decision Making - Medical Decision Making 20 male seen and evaluated per psychiatry for depression and patient seen eval by psychiatry and can be discharged home Disposition Clinical Impression: Depression Disposition: HOME SELF-CARE Condition: Good Instructions (If sedation given, give patient instructions): Depression (ED) Is patient prescribed a controlled substance at d/c from ED?: No Referrals: Oziel Rios DO [Primary Care Provider] - 1-2 days
[2021-07-30 00:18] VITALS: BP 124/78; PULSE 104
== END 2021-07-30 00:18 | disposition home or self-care (01) ==
LOC: SUPCPDRO 20:42 → EC 20:42
DX: F32.9 Major depressive disorder, single episode, unspecified (principal); D41.9 Neoplasm of uncertain behavior of unspecified urinary organ
CPT/HCPCS: 82075; 99284

== ENCOUNTER 2021-11-16 21:00 | Emergency (ER) | payer BC, OTHER ==
[2021-11-16 21:42] VITALS: TEMP 98.2
[2021-11-17 00:33] LABS: Amphetamine Screen,Urine Not Detected (NotDetected); Barbiturate Screen,Urine Not Detected (NotDetected); Benzodiazepines Screen,Urine Not Detected (NotDetected); Cocaine Screen,Urine Not Detected (NotDetected); Methadone Screen, Urine Not Detected (NotDetected); Opiate Screen,Urine Not Detected (NotDetected); Oxycodone Screen, Urine Not Detected (NotDetected); Phencyclidine Screen,Urine Not Detected (NotDetected); Tricyclic Antidepressant,Urine Not Detected (NotDetected); Urn Cannabinoid Scrn Not Detected (NotDetected)
--- NOTE | 2021-11-17 01:28 | ED ---
Psych HPI - General Chief Complaint: Psychiatric Symptoms Stated Complaint: Mental Health Time Seen by Provider: 11/16/21 21:28 Source: patient, EMS, RN notes reviewed, old records reviewed Mode of arrival: EMS Limitations: no limitations - History of Present Illness Initial Comments: This is a 21-year-old male DF for eval of psychiatric illness. Patient resents today for psychiatric evaluation. Patient has history of psychiatric illness, she has no recent drug or alcohol abuse. Did cut both of his upper wrist MD Complaint: feels depressed -: unknown Associated Psychiatric Symptoms: depression, suicidal ideation Quality: intermittent Improves With: none Context: not taking psychiatric medications, significant life stressor Treatments Prior to Arrival: placed on mental health hold If Self Harm: admits thoughts of self harm - Related Data Home Medications Medication Instructions Recorded Confirmed Cetirizine HCl [Zyrtec] 10 mg PO DAILY 07/29/21 11/16/21 busPIRone HCL 30 mg PO BID 07/29/21 11/16/21 Citalopram Hydrobromide [CeleXA] 40 mg PO DAILY 11/16/21 11/16/21 Multivitamins, Thera [Multivitamin 1 tab PO DAILY 11/16/21 11/16/21 (formulary)] Previous Rx's Medication Instructions Recorded ARIPiprazole IM [Abilify Maintena] 400 mg IM Q28D #1 vial 12/24/20 Melatonin 10 mg PO HS PRN 30 Days tablet 03/09/21 OLANZapine [ZyPREXA] 5 mg PO BID 30 Days tab 03/09/21 cloNIDine HCL [Catapres] 0.2 mg PO BID PRN 30 Days tab 03/09/21 Allergies Allergy/AdvReac Type Severity Reaction Status Date / Time montelukast [From Singulair] AdvReac suicidal Verified 11/16/21 22:24 Review of Systems ROS Statement: Those systems with pertinent positive or pertinent negative responses have been documented in the HPI. ROS Other: All systems not noted in ROS Statement are negative. Past Medical History Past Medical History: No Reported History Additional Past Medical History / Comment(s): seasonal allergies, aspergers, autistic History of Any Multi-Drug Resistant Organisms: None Reported Past Surgical History: No Surgical Hx Reported Past Anesthesia/Blood Transfusion Reactions: No Reported Reaction Past Psychological History: Anxiety, Depression Smoking Status: Never smoker Past Alcohol Use History: None Reported Past Drug Use History: None Reported General Exam - General Exam Comments Initial Comments: 2 horizontal lacerations to wrist 5 cm each General appearance: alert, in no apparent distress Head exam: Present: atraumatic, normocephalic, normal inspection Eye exam: Present: normal appearance, PERRL, EOMI. Absent: scleral icterus, conjunctival injection, periorbital swelling ENT exam: Present: normal exam, mucous membranes moist Neck exam: Present: normal inspection. Absent: tenderness, meningismus, ly mphadenopathy Respiratory exam: Present: normal lung sounds bilaterally. Absent: respiratory distress, wheezes, rales, rhonchi, stridor Cardiovascular Exam: Present: regular rate, normal rhythm, normal heart sounds. Absent: systolic murmur, diastolic murmur, rubs, gallop, clicks GI/Abdominal exam: Present: soft, normal bowel sounds. Absent: distended, tenderness, guarding, rebound, rigid Extremities exam: Present: normal inspection, full ROM, normal capillary refill. Absent: tenderness, pedal edema, joint swelling, calf tenderness Back exam: Present: normal inspection Neurological exam: Present: alert, oriented X3, CN II-XII intact Psychiatric exam: Present: normal affect, normal mood Skin exam: Present: warm, dry, intact, normal color. Absent: rash Course Vital Signs 11/16/21 11/17/21 11/17/21 21:36 02:14 04:22 Temperature 98.2 F 98.2 F Pulse Rate 113 H 104 H 102 H Respiratory 16 18 16 Rate Blood Pressure 136/69 106/56 127/86 O2 Sat by Pulse 94 L 98 98 Oximetry - Reevaluation(s) Reevaluation #1: 11/17/21 Medical record is reviewed Patient's medically clear for psychiatric evaluation Procedures - Laceration Laceration #1 Consent Obtained: verbal consent Indication: laceration Site: upper extremity Size (cm): 5 Description: linear Depth: simple, single layer Anesthesia Technique: local infiltration Pre-repair: wound explored Type of Sutures: nylon Size of Sutures: 5-0 Technique: simple, interrupted Patient Tolerated Procedure: well Laceration #2 Consent Obtained: verbal consent Indication: laceration Site: upper extremity Size (cm): 5 Description: linear Depth: simple, single layer Anesthesia Technique: local infiltration Pre-repair: wound explored Size of Sutures: 4-0 Technique: simple, interrupted Patient Tolerated Procedure: well Medical Decision Making - Medical Decision Making 21 male to the emergency department today he did cut his wrists today secondary to suicidal thoughts and depression. Lacerations are repaired, patient seen in however psychiatry and can be discharged home - Lab Data Lab Results 11/16/21 Range/Units 23:36 Urine Opiates Screen Not Detected (NotDetected) Ur Oxycodone Screen Not Detected (NotDetected) Urine Methadone Screen Not Detected (NotDetected) Ur Propoxyphene Screen Not Detected (NotDetected) Ur Barbiturates Screen Not Detected (NotDetected) U Tricyclic Antidepress Not Detected (NotDetected) Ur Phencyclidine Scrn Not Detected (NotDetected) Ur Amphetamines Screen Not Detected (NotDetected) U Methamphetamines Scrn Not Detected (NotDetected) U Benzodiazepines Scrn Not Detected (NotDetected) Urine Cocaine Screen Not Detected (NotDetected) U Marijuana (THC) Screen Not Detected (NotDetected) Disposition Clinical Impression: Major depressive disorder, recurrent, Borderline personality disorder, Anxiety disorder, Laceration of left wrist, Laceration of right wrist Disposition: HOME SELF-CARE Condition: Good Instructions (If sedation given, give patient instructions): Mood Disorders (ED) Is patient prescribed a controlled substance at d/c from ED?: No Referrals: Oziel Rios DO [Primary Care Provider] - 1-2 days
[2021-11-17 04:24] VITALS: BP 127/86; PULSE 102; RESP 16
== END 2021-11-17 04:22 | disposition home or self-care (01) ==
LOC: EC 21:00
DX: S61.512A Laceration without foreign body of left wrist, initial encounter (principal); S61.511A Laceration without foreign body of right wrist, initial encounter; F33.9 Major depressive disorder, recurrent, unspecified; F60.3 Borderline personality disorder; F41.9 Anxiety disorder, unspecified; Z79.899 Other long term (current) drug therapy; X78.9XXA Intentional self-harm by unspecified sharp object, initial encounter
CPT/HCPCS: 12004; 80306; 99285

== ENCOUNTER 2022-08-26 19:07 | Inpatient (IN) | payer BC, OTHER ==
[2022-08-26] MEDS ORDERED: TOPICAL SKIN ADHESIVE 1 EACH AMP TOPICAL ONE (19:52)
--- NOTE | 2022-08-26 21:22 | ED ---
General Adult HPI - General Source: patient Limitations: no limitations <Nurys Boss - Last Filed: 08/26/22 22:10> <Ronnie Taylor - Last Filed: 08/28/22 21:38> <Jose Dai - Last Filed: 08/30/22 00:50> - General Source: patient, RN notes reviewed, old records reviewed Mode of arrival: ambulatory Limitations: no limitations <Cuate Brooks - Last Filed: 08/30/22 07:25> - General Chief complaint: Psychiatric Symptoms Stated complaint: mental health Time Seen by Provider: 08/26/22 19:19 - History of Present Illness Initial comments: Patient is a 21-year-old male who presents emergency Department complaining of self injury behavior. Presents with his mother. He's been having suicidal thoughts have been worse lately. Does have these episodes were he has multiple days to weeks of worsening depression, anxiety, suicidal thoughts. Also has a history of autism. This week has attempted to self injuring herself by cutting multiple times. This is the third episode. Multiple lacerations of the anterior right forearm. None are actively bleeding at this time. Also some lacerations over the anterior left forearm from yesterday. Unknown last tetanus shot. No fevers chills, sick contacts. Denies any other injury behavior. Denies any drug or alcohol use. States he is compliant with his home medications. Denies any homicidal ideations, attempts, plans. Denies any visual or auditory hallucinations. Does endorse suicide ideations, attempts, plans by cutting. His no other acute complaints at this time. There is concerned due to the increased frequency of these episodes per mother. (Cuate Brooks) - Related Data Home Medications Medication Instructions Recorded Confirmed Cetirizine HCl [Zyrtec] 10 mg PO DAILY 07/29/21 08/30/22 busPIRone HCL [Buspar] 30 mg PO BID 07/29/21 08/30/22 PARoxetine HCL [Paxil] 20 mg PO HS 08/27/22 08/30/22 PARoxetine HCL [Paxil] 40 mg PO DAILY 08/27/22 08/30/22 hydrOXYzine pamoate [Vistaril] 50 mg PO TID PRN 08/27/22 08/30/22 lamoTRIgine [LaMICtal] See Taper PO DIRECTED 08/27/22 08/30/22 Previous Rx's Medication Instructions Recorded ARIPiprazole IM [Abilisheilaangie Maintena] 400 mg IM Q28D #1 vial 12/24/20 Allergies Allergy/AdvReac Type Severity Reaction Status Date / Time montelukast [From Singulair] AdvReac suicidal Verified 08/30/22 00:46 Review of Systems ROS Other: All systems not noted in ROS Statement are negative. <Nurys Boss - Last Filed: 08/26/22 22:10> ROS Other: All systems not noted in ROS Statement are negative. <Ronnie Taylor - Last Filed: 08/28/22 21:38> ROS Other: All systems not noted in ROS Statement are negative. <Jose Dai - Last Filed: 08/30/22 00:50> ROS Other: All systems not noted in ROS Statement are negative. <Cuate Brooks - Last Filed: 08/30/22 07:25> ROS Statement: Those systems with pertinent positive or pertinent negative responses have been documented in the HPI. Review of Systems: CONST: Denies fever EYES: Denies blurry vision ENT: Denies nasal congestion C/V: Denies Chest pain RESP: Denies shortness of breath GI: Denies abdominal pain : Denies dysuria SKIN: Endorses lacerations to the anterior forearms MSK: Denies joint pain. NEURO: Denies headache PSYCH: Denies homicidal ideations/plans/attempts. Denies visual or auditory hallucinations. He endorses suicidal ideations plan by cutting , attempts. Self injuring behavior. (Cuate Brooks) Past Medical History Past Medical History: No Reported History Additional Past Medical History / Comment(s): seasonal allergies, aspergers, autistic History of Any Multi-Drug Resistant Organisms: None Reported Past Surgical History: No Surgical Hx Reported Past Anesthesia/Blood Transfusion Reactions: No Reported Reaction Past Psychological History: Anxiety, Depression Smoking Status: Never smoker Past Alcohol Use History: None Reported Past Drug Use History: None Reported <Cuate Brooks - Last Filed: 08/30/22 07:25> General Exam Limitations: no limitations (Pleasant well-developed, well-nourished male in no acute distress.) General appearance: alert, in no apparent distress Extremities exam: Present: normal capillary refill Left Neurosensory exam: Present: radial nerve intact, ulnar nerve intact, median nerve intact Vascular: Present: normal capillary refill, radial pulse, ulnar pulse. Absent: vascular compromise, Pallo Right Neuro motor exam: Present: wrist extension intact, fingers 2-5 abduction intact Neurosensory exam: Present: radial nerve intact, ulnar nerve intact, median nerve intact Vascular: Present: normal capillary refill, radial pulse, ulnar pulse. Absent: vascular compromise, Pallo Neurological exam: Present: alert, oriented X3 Psychiatric exam: Present: normal affect, normal mood Skin exam: Present: warm, dry, normal color Expanded Type of lesion: Present: laceration (9 superficial laceration RFA, no active bleeding, distal sensation intact, ROM WNL. 4 superficial laceration LFA, no active bleeding, distal sensation intact, ROM WNL. ) <Nurys Boss - Last Filed: 08/26/22 22:10> General appearance: alert, in no apparent distress Head exam: Present: atraumatic, normocephalic, normal inspection Eye exam: Present: normal appearance, PERRL, EOMI. Absent: scleral icterus, conjunctival injection, periorbital swelling ENT exam: Present: normal exam, mucous membranes moist Neck exam: Present: normal inspection. Absent: tenderness, meningismus, ly mphadenopathy Respiratory exam: Present: normal lung sounds bilaterally. Absent: respiratory distress, wheezes, rales, rhonchi, stridor Cardiovascular Exam: Present: regular rate, normal rhythm, normal heart sounds. Absent: systolic murmur, diastolic murmur, rubs, gallop, clicks GI/Abdominal exam: Present: soft, normal bowel sounds. Absent: distended, tenderness, guarding, rebound, rigid Extremities exam: Present: normal inspection, full ROM, normal capillary refill. Absent: tenderness, pedal edema, joint swelling, calf tenderness Back exam: Present: normal inspection Neurological exam: Present: alert, oriented X3, CN II-XII intact Psychiatric exam: Present: normal affect, normal mood Skin exam: Present: warm, dry, intact, normal color. Absent: rash <Jsoe Dai - Last Filed: 08/30/22 00:50> Limitations: no limitations <Cuate Brooks - Last Filed: 08/30/22 07:25> - General Exam Comments Initial Comments: General: Appears in no acute distress. HEAD: Normal with no signs of head trauma. EYES: PERRLA, EOMI, conjunctiva normal, no discharge. ENT: Hearing grossly intact, normal oropharynx. RESPIRATORY: Clear breath sounds bilaterally. No wheezes, rales, or rhonchi. C/V: Regular rate and rhythm. S1 and S2 auscultated, no edema, peripheral puls es 2+ and intact throughout ABD: Abd is soft, nontender, nondistended EXT: Normal range of motion, no obvious deformity SKIN: Superficial lacerations to bilateral forearms. NEURO: Alert and oriented 4. (Cuate Brooks) Course <Jose Dai - Last Filed: 08/30/22 00:50> Vital Signs 08/26/22 08/27/22 08/27/22 19:34 09:15 22:00 Temperature 97.8 F 98.2 F Pulse Rate 115 H 102 H 98 Respiratory 18 16 16 Rate Blood Pressure 124/95 119/76 119/56 O2 Sat by Pulse 96 98 94 L Oximetry 08/29/22 08/30/22 12:04 01:10 Temperature 98 F Pulse Rate 91 71 Respiratory 16 18 Rate Blood Pressure 105/57 108/61 O2 Sat by Pulse 96 98 Oximetry - Reevaluation(s) Reevaluation #1: 08/30/22 00:51 Patient was made medically clear for psychiatry (Jose Dai) Procedures - Laceration Laceration #1 Consent Obtained: verbal consent Indication: laceration Site: upper extremity (right) Size (cm): 4 Description: linear Depth: simple, single layer (superficial) Pre-repair: wound explored, irrigated extensively Patient Tolerated Procedure: well, no complications Laceration #2 Consent Obtained: verbal consent Indication: laceration Site: upper extremity (left) Description: linear Depth: simple, single layer Pre-repair: wound explored, irrigated extensively Patient Tolerated Procedure: well, no complications <Nurys Boss - Last Filed: 08/26/22 22:10> - Restraint - Face to Face Restraint Occurrence 1 Patient's Immediate Situation: Endangers self safety, Endangers staff safety, Violent behavior Patient's Reaction to the Intervention: Uncooperative, Angry, Fearful Patient's Medical & Behavioral Condition: Awake, Alert, Agitated Face to Face Eval of Restraint Date: 08/27/22 Face to Face Eval of Restraint Time: 21:31 Restraint Occurrence 2 Patient's Immediate Situation: Endangers self safety, Endangers others' safety, Endangers staff safety Patient's Reaction to the Intervention: Uncooperative, Hostile, Belligerent Patient's Medical & Behavioral Condition: Awake, Alert, Agitated Need to Continue or Terminate Restraint or Seclusion: Continue Face to Face Eval of Restraint Date: 08/28/22 Face to Face Eval of Restraint Time: 21:31 <Ronnie Taylor - Last Filed: 08/28/22 21:38> - Laceration Laceration #1 Additional Comments: 9 superficial laceration RFA, no active bleeding, distal sensation intact, ROM WNL. Wounds cleansed and thoroughly irrigated. Exofin skin adhesive used to approximate wounds. Wound care discussed with patient; he verbalizes understanding. (Nurys Boss) Laceration #2 Additional Comments: 4 superficial laceration LFA, no active bleeding, distal sensation intact, ROM WNL. Wounds cleansed and thoroughly irrigated. Exofin skin adhesive used to approximate wounds. Wound care discussed with patient; he verbalizes understanding. (Nurys Boss) Medical Decision Making - Lab Data Result diagrams: 08/26/22 23:30 08/26/22 23:30 <Ronnie Taylor - Last Filed: 08/28/22 21:38> - Lab Data Result diagrams: 08/26/22 23:30 08/26/22 23:30 <Jose Dai - Last Filed: 08/30/22 00:50> - Lab Data Result diagrams: 08/26/22 23:30 08/26/22 23:30 <Cuate Brooks - Last Filed: 08/30/22 07:25> - Medical Decision Making 21-year-old male who was seen eval by psychiatry here in the emergency prior. Patient will be transferred for inpatient psychiatric evaluation and treatment (Jose Dai) Based on the patient's presentation and physical exam, I believe he is having suicidal behavior. Self injuring behavior. He is placed in green scrubs. Sitter was ordered. Suicide precautions ordered. BAT is 0. UDS is pending. We will close his lacerations was skin glue. Tetanus was updated. Vital signs within acceptable limits. Patient's medically cleared for evaluation by psychiatry. Disposition is pending EPS evaluation. EPS evaluated the patient. Patient will be transferred to a DD unit for inpatient psychiatric treatment. Patient is pending psychiatric transfer.Clinical certificate was completed by myself. (Cuate Brooks) - Lab Data Lab Results 08/26/22 08/26/22 08/26/22 Range/Units 21:56 21:56 23:24 WBC (4.0-11.0) k/uL RBC (4.30-5.90) m/uL Hgb (13.0-17.5) gm/dL Hct (39.0-53.0) % MCV (80.0-100.0) fL MCH (25.0-35.0) pg MCHC (31.0-37.0) g/dL RDW (11.5-15.5) % Plt Count (150-450) k/uL MPV Neutrophils % % Lymphocytes % % Monocytes % % Eosinophils % % Basophils % % Neutrophils # (1.3-7.7) k/uL Lymphocytes # (1.0-4.8) k/uL Monocytes # (0-1.0) k/uL Eosinophils # (0-0.7) k/uL Basophils # (0-0.2) k/uL Sodium (137-145) mmol/L Potassium (3.5-5.1) mmol/L Chloride (98-107) mmol/L Carbon Dioxide (22-30) mmol/L Anion Gap mmol/L BUN (9-20) mg/dL Creatinine (0.66-1.25) mg/dL Est GFR (CKD-EPI)AfAm (>60 ml/min/1.73 sqM) Est GFR (CKD-EPI)NonAf (>60 ml/min/1.73 sqM) Glucose (74-99) mg/dL Calcium (8.4-10.2) mg/dL Total Bilirubin (0.2-1.3) mg/dL AST (17-59) U/L ALT (4-49) U/L Alkaline Phosphatase (38-126) U/L Total Protein (6.3-8.2) g/dL Albumin (3.5-5.0) g/dL Urine Color Yellow Urine Appearance Turbid (Clear) Urine pH 5.5 (5.0-8.0) Ur Specific [place] 1.031 (1.001-1.035) Urine Protein 1+ H (Negative) Urine Glucose (UA) Negative (Negative) Urine Ketones Trace H (Negative) Urine Blood Negative (Negative) Urine Nitrite Negative (Negative) Urine Bilirubin Negative (Negative) Urine Urobilinogen <2.0 (<2.0) mg/dL Ur Leukocyte Esterase Negative (Negative) Amorphous Sediment Rare H (None) /hpf Urine Mucus Many H (None) /hpf Urine Opiates Screen Not Detected (NotDetected) Ur Oxycodone Screen Not Detected (NotDetected) Urine Methadone Screen Not Detected (NotDetected) Ur Propoxyphene Screen Not Detected (NotDetected) Ur Barbiturates Screen Not Detected (NotDetected) U Tricyclic Antidepress Not Detected (NotDetected) Ur Phencyclidine Scrn Not Detected (NotDetected) Ur Amphetamines Screen Not Detected (NotDetected) U Methamphetamines Scrn Not Detected (NotDetected) U Benzodiazepines Scrn Not Detected (NotDetected) Urine Cocaine Screen Not Detected (NotDetected) U Marijuana (THC) Screen Not Detected (NotDetected) Coronavirus (PCR) Not Detected (Not Detectd) 08/26/22 08/26/22 Range/Units 23:30 23:30 WBC 9.0 (4.0-11.0) k/uL RBC 5.27 (4.30-5.90) m/uL Hgb 16.2 (13.0-17.5) gm/dL Hct 44.2 (39.0-53.0) % MCV 83.8 (80.0-100.0) fL MCH 30.7 (25.0-35.0) pg MCHC 36.6 (31.0-37.0) g/dL RDW 12.6 (11.5-15.5) % Plt Count 257 (150-450) k/uL MPV 7.0 Neutrophils % 44 % Lymphocytes % 44 % Monocytes % 7 % Eosinophils % 2 % Basophils % 1 % Neutrophils # 3.9 (1.3-7.7) k/uL Lymphocytes # 4.0 (1.0-4.8) k/uL Monocytes # 0.6 (0-1.0) k/uL Eosinophils # 0.2 (0-0.7) k/uL Basophils # 0.1 (0-0.2) k/uL Sodium 137 (137-145) mmol/L Potassium 3.9 (3.5-5.1) mmol/L Chloride 101 (98-107) mmol/L Carbon Dioxide 21 L (22-30) mmol/L Anion Gap 15 mmol/L BUN 12 (9-20) mg/dL Creatinine 0.83 (0.66-1.25) mg/dL Est GFR (CKD-EPI)AfAm >90 (>60 ml/min/1.73 sqM) Est GFR (CKD-EPI)NonAf >90 (>60 ml/min/1.73 sqM) Glucose 104 H (74-99) mg/dL Calcium 9.3 (8.4-10.2) mg/dL Total Bilirubin 1.1 (0.2-1.3) mg/dL AST 37 (17-59) U/L ALT 50 H (4-49) U/L Alkaline Phosphatase 89 (38-126) U/L Total Protein 7.7 (6.3-8.2) g/dL Albumin 5.0 (3.5-5.0) g/dL Urine Color Urine Appearance (Clear) Urine pH (5.0-8.0) Ur Specific [place] (1.001-1.035) Urine Protein (Negative) Urine Glucose (UA) (Negative) Urine Ketones (Negative) Urine Blood (Negative) Urine Nitrite (Negative) Urine Bilirubin (Negative) Urine Urobilinogen (<2.0) mg/dL Ur Leukocyte Esterase (Negative) Amorphous Sediment (None) /hpf Urine Mucus (None) /hpf Urine Opiates Screen (NotDetected) Ur Oxycodone Screen (NotDetected) Urine Methadone Screen (NotDetected) Ur Propoxyphene Screen (NotDetected) Ur Barbiturates Screen (NotDetected) U Tricyclic Antidepress (NotDetected) Ur Phencyclidine Scrn (NotDetected) Ur Amphetamines Screen (NotDetected) U Methamphetamines Scrn (NotDetected) U Benzodiazepines Scrn (NotDetected) Urine Cocaine Screen (NotDetected) U Marijuana (THC) Screen (NotDetected) Coronavirus (PCR) (Not Detectd) Disposition <Nurys Boss - Last Filed: 08/26/22 22:10> <Ronnie Taylor - Last Filed: 08/28/22 21:38> Is patient prescribed a controlled substance at d/c from ED?: No <Jose Dai - Last Filed: 08/30/22 00:50> <Cuate Brooks - Last Filed: 08/30/22 07:25> Clinical Impression: Encounter for psychiatric assessment, Suicidal behavior, Depression, Suicidal ideation, Autism spectrum disorder Disposition: TRANSFER TO PSYCH HOSP/UNIT Condition: Fair
[2022-08-26 22:31] LABS: Amphetamine Screen,Urine Not Detected (NotDetected); Barbiturate Screen,Urine Not Detected (NotDetected); Benzodiazepines Screen,Urine Not Detected (NotDetected); Cocaine Screen,Urine Not Detected (NotDetected); Methadone Screen, Urine Not Detected (NotDetected); Opiate Screen,Urine Not Detected (NotDetected); Oxycodone Screen, Urine Not Detected (NotDetected); Phencyclidine Screen,Urine Not Detected (NotDetected); Tricyclic Antidepressant,Urine Not Detected (NotDetected); Urn Cannabinoid Scrn Not Detected (NotDetected)
[2022-08-27 00:05] LABS: Basophils # (A) 0.1 k/uL (0-0.2); Basophils % (A) 1 %; Eosinophils # (A) 0.2 k/uL (0-0.7); Eosinophils % (A) 2 %; HCT 44.2 % (39.0-53.0); HGB 16.2 gm/dL (13.0-17.5); Lymphocytes % (A) 44 %; MCH 30.7 pg (25.0-35.0); MCHC 36.6 g/dL (31.0-37.0); MCV 83.8 fL (80.0-100.0); Monocytes # (A) 0.6 k/uL (0-1.0); Monocytes % (A) 7 %; Neutrophils # (A) 3.9 k/uL (1.3-7.7); Neutrophils % (A) 44 %; Platelet Count 257 k/uL (150-450); RBC 5.27 m/uL (4.30-5.90); RDW 12.6 % (11.5-15.5)
[2022-08-27 00:10] LABS: Amorphous Sediment,Urine Rare /hpf; Appearance,Urine Turbid (Clear); Bilirubin,Urine Negative (Negative); Blood,Urine Negative (Negative); Color,Urine Yellow; Glucose,Urine (UA) Negative (Negative); Ketones,Urine Trace (Negative); Leukocyte Esterase,Urine Negative (Negative); Mucus,Urine Many /hpf; Nitrite,Urine Negative (Negative); PH, Urine 5.5 (5.0-8.0); Protein,Urine 1+ (Negative); Specific Gravity,Urine 1.031 (1.001-1.035); Urobilinogen,Urine <2.0 mg/dL (<2.0)
[2022-08-27 00:23] LABS: ALT 50 U/L (4-49); AST 37 U/L (17-59); African American GFR (CKD) >90 (>60 ml/min/1.73 sqM); Alkaline Phosphatase 89 U/L (38-126); Anion Gap 15 mmol/L; Blood Urea Nitrogen 12 mg/dL (9-20); Calcium 9.3 mg/dL (8.4-10.2); Carbon Dioxide 21 mmol/L (22-30); Chloride 101 mmol/L (98-107); Glucose 104 mg/dL (74-99); Non-African American GFR(CKD) >90 (>60 ml/min/1.73 sqM); Potassium 3.9 mmol/L (3.5-5.1); Sodium 137 mmol/L (137-145); Total Bilirubin 1.1 mg/dL (0.2-1.3); Total Protein 7.7 g/dL (6.3-8.2)
[2022-08-27] MEDS ORDERED: hydrOXYzine pamoate 25 MG CAP PO PRN (15:31)
[2022-08-27] MEDS ORDERED: IBUPROFEN 400 MG TAB PO PRN (15:35)
[2022-08-27] MEDS: lamoTRIgine 25 MG TAB PO SCH ×2 (16:31→20:51)
[2022-08-27] MEDS: busPIRone HCl 10 MG TAB PO SCH (20:51)
[2022-08-27] MEDS: PARoxetine 20 MG TAB PO SCH (20:51)
[2022-08-27] MEDS ORDERED: LORazepam 2 MG/ML INJ IM STA (21:20)
[2022-08-28] MEDS: busPIRone HCl 10 MG TAB PO SCH ×3 (09:39→20:54)
[2022-08-28] MEDS: PARoxetine 20 MG TAB PO SCH ×2 (09:39→20:54)
[2022-08-28] MEDS: lamoTRIgine 25 MG TAB PO SCH ×4 (09:39→20:55)
[2022-08-28] MEDS ORDERED: LORazepam 2 MG/ML INJ IM STA (22:46)
[2022-08-29] MEDS: PARoxetine 20 MG TAB PO SCH ×2 (10:43→21:20)
[2022-08-29] MEDS: busPIRone HCl 10 MG TAB PO SCH ×2 (10:43→21:19)
[2022-08-29] MEDS: lamoTRIgine 25 MG TAB PO SCH ×2 (10:43→21:19)
--- NOTE | 2022-08-29 14:17 | P.HP ---
Psychiatric H&P - . H&P Date: 08/29/22 History & Physical: Allergies Allergy/AdvReac Type Severity Reaction Status Date / Time montelukast [From [facility]] AdvReac suicidal Verified 08/26/22 19:42 Vital Signs Temp 98 F 08/29/22 12:04 Pulse 91 08/29/22 12:04 Resp 16 08/29/22 12:04 BP 105/57 08/29/22 12:04 Pulse Ox 96 08/29/22 12:04 FiO2 Laboratory Last Values WBC 9.0 k/uL (4.0-11.0) 08/26/22 23:30 RBC 5.27 m/uL (4.30-5.90) 08/26/22 23:30 Hgb 16.2 gm/dL (13.0-17.5) 08/26/22 23:30 Hct 44.2 % (39.0-53.0) 08/26/22 23:30 MCV 83.8 fL (80.0-100.0) 08/26/22 23:30 MCH 30.7 pg (25.0-35.0) 08/26/22 23:30 MCHC 36.6 g/dL (31.0-37.0) 08/26/22 23:30 RDW 12.6 % (11.5-15.5) 08/26/22 23:30 Plt Count 257 k/uL (150-450) 08/26/22 23:30 MPV 7.0 08/26/22 23:30 Neutrophils % 44 % 08/26/22 23:30 Lymphocytes % 44 % 08/26/22 23:30 Monocytes % 7 % 08/26/22 23:30 Eosinophils % 2 % 08/26/22 23:30 Basophils % 1 % 08/26/22 23:30 Neutrophils # 3.9 k/uL (1.3-7.7) 08/26/22 23:30 Lymphocytes # 4.0 k/uL (1.0-4.8) 08/26/22 23:30 Monocytes # 0.6 k/uL (0-1.0) 08/26/22 23:30 Eosinophils # 0.2 k/uL (0-0.7) 08/26/22 23:30 Basophils # 0.1 k/uL (0-0.2) 08/26/22 23:30 Sodium 137 mmol/L (137-145) 08/26/22 23:30 Potassium 3.9 mmol/L (3.5-5.1) 08/26/22 23:30 Chloride 101 mmol/L (98-107) 08/26/22 23:30 Carbon Dioxide 21 mmol/L (22-30) L 08/26/22 23:30 Anion Gap 15 mmol/L 08/26/22 23:30 BUN 12 mg/dL (9-20) 08/26/22 23:30 Creatinine 0.83 mg/dL (0.66-1.25) 08/26/22 23:30 Est GFR (CKD-EPI)AfAm >90 (>60 ml/min/1.73 sqM) 08/26/22 23:30 Est GFR (CKD-EPI)NonAf >90 (>60 ml/min/1.73 sqM) 08/26/22 23:30 Glucose 104 mg/dL (74-99) H 08/26/22 23:30 Calcium 9.3 mg/dL (8.4-10.2) 08/26/22 23:30 Total Bilirubin 1.1 mg/dL (0.2-1.3) 08/26/22 23:30 AST 37 U/L (17-59) 08/26/22 23:30 ALT 50 U/L (4-49) H 08/26/22 23:30 Alkaline Phosphatase 89 U/L (38-126) 08/26/22 23:30 Total Protein 7.7 g/dL (6.3-8.2) 08/26/22 23:30 Albumin 5.0 g/dL (3.5-5.0) 08/26/22 23:30 Urine Color Yellow 08/26/22 21:56 Urine Appearance Turbid (Clear) 08/26/22 21:56 Urine pH 5.5 (5.0-8.0) 08/26/22:56 Ur Specific [place] 1.031 (1.001-1.035) 08/26/22 21:56 Urine Protein 1+ (Negative) H 08/26/22 21:56 Urine Glucose (UA) Negative (Negative) 08/26/22 21:56 Urine Ketones Trace (Negative) H 08/26/22 21:56 Urine Blood Negative (Negative) 08/26/22 21:56 Urine Nitrite Negative (Negative) 08/26/22 21:56 Urine Bilirubin Negative (Negative) 08/26/22 21:56 Urine Urobilinogen <2.0 mg/dL (<2.0) 08/26/22 21:56 Ur Leukocyte Esterase Negative (Negative) 08/26/22 21:56 Amorphous Sediment Rare /hpf (None) H 08/26/22 21:56 Urine Mucus Many /hpf (None) H 08/26/22 21:56 Urine Opiates Screen Not Detected (NotDetected) 08/26/22 21:56 Ur Oxycodone Screen Not Detected (NotDetected) 08/26/22 21:56 Urine Methadone Screen Not Detected (NotDetected) 08/26/22 21:56 Ur Propoxyphene Screen Not Detected (NotDetected) 08/26/22 21:56 Ur Barbiturates Screen Not Detected (NotDetected) 08/26/22 21:56 U Tricyclic Antidepress Not Detected (NotDetected) 08/26/22 21:56 Ur Phencyclidine Scrn Not Detected (NotDetected) 08/26/22 21:56 Ur Amphetamines Screen Not Detected (NotDetected) 08/26/22 21:56 U Methamphetamines Scrn Not Detected (NotDetected) 08/26/22 21:56 U Benzodiazepines Scrn Not Detected (NotDetected) 08/26/22 21:56 Urine Cocaine Screen Not Detected (NotDetected) 08/26/22 21:56 U Marijuana (THC) Screen Not Detected (NotDetected) 08/26/22 21:56 Coronavirus (PCR) Not Detected (Not Detectd) 08/26/22 23:24 08/29/22 14:17 IDENTIFYING DATA: This patient is a 21-year-old male with a significant history of autism spectrum disorder, depression, and cluster B personality disorder presents for hospital on 08/26/2022 with a chief complaint of suicidal ideation and increased self-injurious behavior. HISTORY OF PRESENT ILLNESS: The patient presented to the hospital on 08/26/2022, brought into the hospital by family for worsening depression and suicidal ideation. Over the past week prior to his admission, the patient has been attempting to injure himself by cutting himself superficially on his bilateral forearms. The patient did receive a tetanus shot in the emergency department. In regards to acute stressors, the patient reports that he has been feeling increasingly depressed and anxious in regards to his mental health. He reports that he has been having increased urges for self-harm and suicidal thoughts however denies any recent attempts. He is not reporting any auditory or visual hallucinations. He is denying any paranoia or other delusions. The patient does admit that he is not adherent with his medications and takes them only intermittently. He is requesting inpatient psychiatric admission at this time. PAST PSYCHIATRIC HISTORY: Patient has a history of of major depressive disorder, borderline personality disorder, generalized anxiety disorder, and autism spectrum disorder. The patient's home medication regimen includes Lamictal, Vistaril, BuSpar, Paxil, and Abilify maintena. Patient received his last dose of Abilify maintena on 08/03/2022. The patient was last hospitalized on our psychiatric unit on 03/04/2021. He has appeared in the emergency department for psychiatric evaluation on 07/29/21 and again on 11/16/2021. He is open with [facility] the patient has one prior attempt at suicide. PAST MEDICAL HISTORY: Past Medical History: No Reported History Additional Past Medical History / Comment(s): seasonal allergies, aspergers, autistic History of Any Multi-Drug Resistant Organisms: None Reported Past Surgical History: No Surgical Hx Reported Past Anesthesia/Blood Transfusion Reactions: No Reported Reaction Past Psychological History: Anxiety, Depression Smoking Status: Never smoker Past Alcohol Use History: None Reported Past Drug Use History: None Reported ALLERGIES: montelukast CHEMICAL DEPENDENCY HISTORY: Patient denies any tobacco, alcohol, marijuana, or illicit drug use. FAMILY PSYCHIATRIC/SUBSTANCE USE HISTORY: No reported psychiatric family history. SOCIAL HISTORY: Patient was born and raised in [place], [place]. The patient attended some college. He is currently unemployed. He is single, never , and has no children. He lives with his parents. The patient plays minecraft. MENTAL STATUS EXAM: General Appearance: Patient appears to be stated age is alert, pleasant, and cooperative. Patient appears to have fair hygiene and grooming wearing hospital gown with fair eye contact. The patient has wraps covering his bilateral forearms. Behavior: Is calmly seated upright in his bed without any agitated behavior. Speech: Patient's speech is fluent and nonpressured. Mood/Affect: Patient reports their mood is "depressed", affect is congruent and constricted Suicidality/Homicidality: Patient endorses suicidal ideation however denies any homicidal ideation. Perceptions: Patient denies any visual hallucinations and denies any auditory hallucinations Though content/process: There is no evidence of any delusional thought content and thought process is linear and goal-directed. Memory and concentration: AOX3, grossly intact for the purposes of this session. Can spell "WORLD" backwards Judgment and insight: Poor IMPRESSIONS: Major depressive disorder, recurrent, severe Autism spectrum disorder Borderline personality disorder Generalized anxiety disorder PLAN: -At this time patient DOES meet criteria for inpatient psychiatric admission. -Would recommend the following medication changes/additions: No medication recommendations were made at this time. Continue ordered medications of Abilify, Lamictal, Vistaril, Paxil, and BuSpar. -Continue 1:1 sitter for safety -Cannot leave AMA at this time. Patient will need a petition and certification if attempting to leave AMA. -When medically stable, patient is eligible for transfer to a psych bed when available. -Psychiatry will sign off at this point, please contact with any questions. 08/29/22 14:17
[2022-08-29] MEDS ORDERED: BACITRACIN OINT 1 EACH PACKET TOPICAL ONE (18:25)
[2022-08-29] MEDS: MELATONIN 5 MG TABLET PO PRN (20:51)
[2022-08-30] MEDS ORDERED: HALOPERIDOL LACTATE 5 MG/ML 1 ML VIAL IM PRN (00:37)
[2022-08-30] MEDS ORDERED: ACETAMINOPHEN TAB 325 MG TAB PO PRN (00:37)
[2022-08-30] MEDS ORDERED: MAGNESIUM HYDROXIDE 2,400 MG/10 ML CUP PO PRN (00:37)
[2022-08-30] MEDS ORDERED: MAG HYDROX/AL HYDROX/SIMETH 30 ML CUP PO PRN (00:37)
[2022-08-30] MEDS ORDERED: LORazepam 1 MG TAB PO PRN (00:37)
[2022-08-30] MEDS ORDERED: LORazepam 1 MG/0.5 ML VIAL IM PRN (00:43)
[2022-08-30] MEDS ORDERED: haloperidoL 5 MG TAB PO PRN (00:44)
[2022-08-30] MEDS: lamoTRIgine 25 MG TAB PO SCH ×2 (09:41→21:13)
[2022-08-30] MEDS: busPIRone HCl 10 MG TAB PO SCH ×2 (09:41→21:13)
[2022-08-30] MEDS: PARoxetine 20 MG TAB PO SCH ×2 (09:41→21:13)
[2022-08-30 10:17] VITALS: BMI 34.2
--- NOTE | 2022-08-30 11:34 | P.CONS ---
History of Present Illness - Reason for Consult Medical clearance - History of Present Illness Patient is admitted for suicidal ideation and depression. Patient has multiple lacerations on both hands. None of them need sutures. Patient had any fever chills nausea vomiting abdominal pain. REVIEW OF SYSTEMS: CONSTITUTIONAL: No fever, no malaise, no fatigue. HEENT: No recent visual problems or hearing problems. Denied any sore throat. CARDIOVASCULAR: No chest pain, orthopnea, PND, no palpitations, no syncope. PULMONARY: No shortness of breath, no cough, no hemoptysis. GASTROINTESTINAL: No diarrhea, no nausea, no vomiting, no abdominal pain. NEUROLOGICAL: No headaches, no weakness, no numbness. HEMATOLOGICAL: Denies any bleeding or petechiae. GENITOURINARY: Denies any burning micturition, frequency, or urgency. MUSCULOSKELETAL/RHEUMATOLOGICAL: Denies any joint pain, swelling, or any muscle pain. ENDOCRINE: Denies any polyuria or polydipsia. The rest of the 14-point review of systems is negative. PHYSICAL EXAMINATION: GENERAL: The patient is alert and oriented x3, not in any acute distress. Well developed, well nourished. HEENT: Pupils are round and equally reacting to light. EOMI. No scleral icterus. No conjunctival pallor. Normocephalic, atraumatic. No pharyngeal erythema. No thyromegaly. CARDIOVASCULAR: S1 and S2 present. No murmurs, rubs, or gallops. PULMONARY: Chest is clear to auscultation, no wheezing or crackles. ABDOMEN: Soft, nontender, nondistended, normoactive bowel sounds. No palpable organomegaly. MUSCULOSKELETAL: No joint swelling or deformity. EXTREMITIES: No cyanosis, clubbing, or pedal edema. NEUROLOGICAL: Gross neurological examination did not reveal any focal deficits. SKIN: No rashes. Assessment and plan -Major depression and suicidal ideation: Management as per primary service -Generalized anxiety disorder -Borderline personality disorder Patient is clinically doing well from medical perspective, no further recommendations : Past Medical History Past Medical History: No Reported History Additional Past Medical History / Comment(s): seasonal allergies, aspergers, autistic History of Any Multi-Drug Resistant Organisms: None Reported Past Surgical History: No Surgical Hx Reported Past Anesthesia/Blood Transfusion Reactions: No Reported Reaction Past Psychological History: Anxiety, Depression Smoking Status: Never smoker Past Alcohol Use History: None Reported Past Drug Use History: None Reported Medications and Allergies Home Medications Medication Instructions Recorded Confirmed Type ARIPiprazole IM [Abilify Maintena] 400 mg IM Q28D #1 vial 12/24/20 08/30/22 Rx Cetirizine HCl [Zyrtec] 10 mg PO DAILY 07/29/21 08/30/22 History busPIRone HCL [Buspar] 30 mg PO BID 07/29/21 08/30/22 History PARoxetine HCL [Paxil] 20 mg PO HS 08/27/22 08/30/22 History PARoxetine HCL [Paxil] 40 mg PO DAILY 08/27/22 08/30/22 History hydrOXYzine pamoate [Vistaril] 50 mg PO TID PRN 08/27/22 08/30/22 History lamoTRIgine [LaMICtal] See Taper PO DIRECTED 08/27/22 08/30/22 History Allergies Allergy/AdvReac Type Severity Reaction Status Date / Time montelukast [From [facility]] AdvReac suicidal Verified 08/30/22 00:46 Physical Exam Vitals: Vital Signs Temp Pulse Pulse Resp BP BP Pulse Ox 08/30/22 01:18 98.2 F 98 15 129/68 96 08/30/22 01:10 71 18 108/61 98 08/29/22 12:04 98 F 91 16 105/57 96 Intake and Output 08/29/22 08/30/22 08/30/22 22:59 06:59 14:59 Other: Weight 102.285 kg 102.285 kg Results CBC & Chem 7: 08/26/22 23:30 08/26/22 23:30
--- NOTE | 2022-08-30 13:14 | P.HP ---
Psychiatric H&P - . H&P Date: 08/30/22 History & Physical: 08/30/22 13:13 IDENTIFYING INFORMATION: This patient is a 21-year-old male with a significant history of autism spectrum disorder, depression, and cluster B personality disorder presents for hospital on 08/26/2022 with a chief complaint of suicidal ideation and increased self-injurious behavior. HISTORY OF PRESENT ILLNESS: The patient presented to the hospital on 08/26/2022, brought into the hospital by family for worsening depression and suicidal ideation. Over the past week prior to his admission, the patient has been attempting to injure himself by cutting himself superficially on his bilateral forearms. The patient did receive a tetanus shot in the emergency department. He was petitioned and certified. As per petition, patient was endorsing suicidal ideatino with a plan to cut his wrist. He was certified for suicidal ideation. The patient was willing to sign voluntarilty onto the psychiatric unit. Upon evaluation on the psychiatric unit, the patient reports that he has been feeling increasingly suicidal and depressed over the past few months. He states that he has current suicidal thoughts to cut his arm. He reports that he feels like his mood is cyclical and is unable to identify any specific stressors leading up to this hospitalization. He does report chronic suicidal ideation and chronic urges of self-harm. In regards other depressive symptoms, he does report a low appetite, hopelessness, and anhedonia. He is currently denying any auditory or visual hallucinations. He denies any paranoia or other delusions. He reports no significant history of manic or hypomanic symptoms. The patient does admit that he is not always adherent with his medications. He denies any recent drug use. He is admitted for further evaluation and management. PAST PSYCHIATRIC HISTORY: Patient has a history of of major depressive disorder, borderline personality disorder, generalized anxiety disorder, and autism spectrum disorder. The patient's home medication regimen includes Lamictal, Vistaril, BuSpar, Paxil, and Abilify maintena. Patients next dose of Abilify maintena 400 mg IM is due tomorrow. Patient was last hospitalized in a psychiatric unit in February 2021. He follows with [facility]. PMH: Past Medical History: No Reported History Additional Past Medical History / Comment(s): seasonal allergies, aspergers, autistic History of Any Multi-Drug Resistant Organisms: None Reported Past Surgical History: No Surgical Hx Reported Past Anesthesia/Blood Transfusion Reactions: No Reported Reaction Past Psychological History: Anxiety, Depression Smoking Status: Never smoker Past Alcohol Use History: None Reported Past Drug Use History: None Reported ALLERGIES: Montelukast CHEMICAL DEPENDENCY HISTORY: Patient denies any tobacco, alcohol, marijuana, or illicit drug use. FAMILY PSYCHIATRIC/SUBSTANCE USE HISTORY: No reported family psychiatric history. SOCIAL HISTORY: Patient was born and raised in [place], [place]. The patient is attending college. Is currently unemployed. He is single, never , and has no children. He lives with his parents. MENTAL STATUS EXAM: General Appearance: Patient appears to be stated age is alert, directable, and attempts to cooperate. Patient appears to have fair hygiene and grooming. The patient has bilateral cuts on his forearms. Behavior: Patient is seated without any agitated behavior. Eye contact is appropriate. Speech: Patient's speech is fluent and nonpressured. Mood/Affect: Patient reports their mood is I don't know. Affect is irritable. Suicidality/Homicidality: Patient denies having any homicidal ideation intent or plan. Patient endorses suicidal ideation with a plan to cut his wrist Perceptions: Patient denies any visual hallucinations and denies any auditory hallucinations Though content/process: There is no evidence of any delusional thought content and thought process is linear and goal-directed. Memory and concentration: AOX3, grossly intact for the purposes of this session. Can spell "WORLD" backwards Judgment and insight: Poor STRENGTHS/WEAKNESSES: Strengths that the patient has support. Weakness that the patient is nonadherent with treatment. INTELLECT: Patient lacks emotional intellect and empathy secondary to autism spectrum. IMPRESSIONS: Major depressive disorder, recurrent, severe Autism spectrum disorder Borderline personality disorder Generalized anxiety disorder PLAN: -Patient is admitted under voluntary status to MHU for stabilization of psychiatric symptoms and safety. Patient signed adult voluntary form and medicat ion consent and is placed in patient's chart. -Medications : Will start patient on Abilify Maintena 400 mg IM to be administered tomorrow BuSpar 30 mg by mouth twice a day for anxiety Lamictal 25 mg by mouth twice a day for mood stabilization Paxil 40 mg by mouth every morning and 2 mg by mouth daily at bedtime for anxiety -This provider discussed dialectal behavioral therapy with the patient. We will engage in DBT during this hospitalization. -Vistaril and Haldol PRN for agitation/aggression -Patient was informed of the risks, benefits and side effects of the medication and patient verbally consented to taking the medications. Patient signed med consent form and was placed in chart. -Internal Medicine consult to perform medical evaluation and physical -SW on board for discharge planning. Encourage patient to participate in groups to work on coping skills. 08/30/22 13:14 Vital Signs Temp 98.2 F 08/30/22 01:18 Pulse 98 08/30/22 01:18 Resp 15 08/30/22 01:18 BP 129/68 08/30/22 01:18 Pulse Ox 96 08/30/22 01:18 FiO2 Intake & Output 08/29/22 08/30/22 08/30/22 18:59 06:59 18:59 Weight 102.285 kg 102.285 kg Laboratory Results WBC 9.0 k/uL (4.0-11.0) 08/26/22 23:30 RBC 5.27 m/uL (4.30-5.90) 08/26/22 23:30 Hgb 16.2 gm/dL (13.0-17.5) 08/26/22 23:30 Hct 44.2 % (39.0-53.0) 08/26/22 23:30 MCV 83.8 fL (80.0-100.0) 08/26/22 23:30 MCH 30.7 pg (25.0-35.0) 08/26/22 23:30 MCHC 36.6 g/dL (31.0-37.0) 08/26/22 23:30 RDW 12.6 % (11.5-15.5) 08/26/22 23:30 Plt Count 257 k/uL (150-450) 08/26/22 23:30 MPV 7.0 08/26/22 23:30 Neutrophils % 44 % 08/26/22 23:30 Lymphocytes % 44 % 08/26/22 23:30 Monocytes % 7 % 08/26/22 23:30 Eosinophils % 2 % 08/26/22 23:30 Basophils % 1 % 08/26/22 23:30 Neutrophils # 3.9 k/uL (1.3-7.7) 08/26/22 23:30 Lymphocytes # 4.0 k/uL (1.0-4.8) 08/26/22 23:30 Monocytes # 0.6 k/uL (0-1.0) 08/26/22 23:30 Eosinophils # 0.2 k/uL (0-0.7) 08/26/22 23:30 Basophils # 0.1 k/uL (0-0.2) 08/26/22 23:30 Sodium 137 mmol/L (137-145) 08/26/22 23:30 Potassium 3.9 mmol/L (3.5-5.1) 08/26/22 23:30 Chloride 101 mmol/L (98-107) 08/26/22 23:30 Carbon Dioxide 21 mmol/L (22-30) L 08/26/22 23:30 Anion Gap 15 mmol/L 08/26/22 23:30 BUN 12 mg/dL (9-20) 08/26/22 23:30 Creatinine 0.83 mg/dL (0.66-1.25) 08/26/22 23:30 Est GFR (CKD-EPI)AfAm >90 (>60 ml/min/1.73 sqM) 08/26/22 23:30 Est GFR (CKD-EPI)NonAf >90 (>60 ml/min/1.73 sqM) 08/26/22 23:30 Glucose 104 mg/dL (74-99) H 08/26/22 23:30 Calcium 9.3 mg/dL (8.4-10.2) 08/26/22 23:30 Total Bilirubin 1.1 mg/dL (0.2-1.3) 08/26/22 23:30 AST 37 U/L (17-59) 08/26/22 23:30 ALT 50 U/L (4-49) H 08/26/22 23:30 Alkaline Phosphatase 89 U/L (38-126) 08/26/22 23:30 Total Protein 7.7 g/dL (6.3-8.2) 08/26/22 23:30 Albumin 5.0 g/dL (3.5-5.0) 08/26/22 23:30 Urine Color Yellow 08/26/22 21:56 Urine Appearance Turbid (Clear) 08/26/22 21:56 Urine pH 5.5 (5.0-8.0) 08/26/22 21:56 Ur Specific [place] 1.031 (1.001-1.035) 08/26/22 21:56 Urine Protein 1+ (Negative) H 08/26/22 21:56 Urine Glucose (UA) Negative (Negative) 08/26/22 21:56 Urine Ketones Trace (Negative) H 08/26/22 21:56 Urine Blood Negative (Negative) 08/26/22 21:56 Urine Nitrite Negative (Negative) 08/26/22 21:56 Urine Bilirubin Negative (Negative) 08/26/22 21:56 Urine Urobilinogen <2.0 mg/dL (<2.0) 08/26/22 21:56 Ur Leukocyte Esterase Negative (Negative) 08/26/22 21:56 Amorphous Sediment Rare /hpf (None) H 08/26/22 21:56 Urine Mucus Many /hpf (None) H 08/26/22 21:56 Urine Opiates Screen Not Detected (NotDetected) 08/26/22 21:56 Ur Oxycodone Screen Not Detected (NotDetected) 08/26/22 21:56 Urine Methadone Screen Not Detected (NotDetected) 08/26/22 21:56 Ur Propoxyphene Screen Not Detected (NotDetected) 08/26/22 21:56 Ur Barbiturates Screen Not Detected (NotDetected) 08/26/22 21:56 U Tricyclic Antidepress Not Detected (NotDetected) 08/26/22 21:56 Ur Phencyclidine Scrn Not Detected (NotDetected) 08/26/22 21:56 Ur Amphetamines Screen Not Detected (NotDetected) 08/26/22 21:56 U Methamphetamines Scrn Not Detected (NotDetected) 08/26/22 21:56 U Benzodiazepines Scrn Not Detected (NotDetected) 08/26/22 21:56 Urine Cocaine Screen Not Detected (NotDetected) 08/26/22 21:56 U Marijuana (THC) Screen Not Detected (NotDetected) 08/26/22 21:56 Coronavirus (PCR) Not Detected (Not Detectd) 08/26/22 23:24 Allergies Allergy/AdvReac Type Severity Reaction Status Date / Time montelukast [From [facility]] AdvReac suicidal Verified 08/30/22 00:46
[2022-08-30] MEDS ORDERED: LORazepam 1 MG/0.5 ML VIAL IM STA (17:24)
[2022-08-31] MEDS ORDERED: ARIPiprazole IM SYRINGE 400 MG (NO CHARGE) PHARMACY STOCK IM SCH (09:00)
[2022-08-31 09:45] LABS: ALT 52 U/L (4-49); AST 37 U/L (17-59); Albumin 4.7 g/dL (3.5-5.0); Alkaline Phosphatase 80 U/L (38-126); Bilirubin, Delta 0.2 mg/dL (0.0-0.2); Bilirubin,Unconjugated 0.7 mg/dL (0.0-1.1); Total Bilirubin 0.9 mg/dL (0.2-1.3); Total Protein 7.2 g/dL (6.3-8.2)
[2022-08-31] MEDS: busPIRone HCl 10 MG TAB PO SCH ×3 (10:20→22:25)
[2022-08-31] MEDS: lamoTRIgine 25 MG TAB PO SCH ×3 (10:21→22:26)
[2022-08-31] MEDS: PARoxetine 20 MG TAB PO SCH ×2 (10:21→21:34)
--- NOTE | 2022-08-31 14:17 | P.PN ---
Progress Note - Text Progress Note Date: 08/31/22 Interval History: Patient was seen wandering the hallways and was directable and agreeable to speak with auto service writer in the office. Currently, the patient is on one-to-one supervision. The patient was engaging in self-harm behavior by hitting his head against the wall. The patient remains oppositional to this provider stating that he does not feel that the psychiatric unit is beneficial for his mental health. When informed that we are working within the system that may be in conflict with what he desires, the patient is unable to accept this. He reports that he is not suicidal or homicidal today. He states that if he is to be continued to be admitted here, that he would increase his suicidal thoughts and have them "fixed." He is otherwise not reporting any issues regarding his sleep was appetite. He denies any auditory or visual hallucinations. He denies any p aranoia or other delusions. Mental Status Exam: General Appearance: Patient appears to be stated age is alert, directable, however oppositional. Behavior: Patient is calmly lying down in bed without any agitated behavior. Speech: Patient's speech is fluent and nonpressured. Mood/Affect: Mood is "getting worse," affect is childlike and oppositional. Suicidality/Homicidality: Patient denies having any suicidal or homicidal ideation intent or plan. Perceptions: Patient denies any visual hallucinations and denies any auditory hallucinations Though content/process: [place] and rigid. No suicidal ideation today. Memory and concentration: AOX3, grossly intact for the purposes of this session Judgment and insight: Poor at baseline Vital Signs Temp 98.2 F 08/30/22 01:18 Pulse 126 H 08/30/22 18:27 Resp 20 08/30/22 18:27 BP 124/56 08/30/22 18:27 Pulse Ox 99 08/30/22 18:27 FiO2 Intake & Output 08/30/22 08/31/22 08/31/22 18:59 06:59 18:59 Weight 102.285 kg Laboratory Results - Last 24 Hours 08/31/22 06:00 Total Bilirubin 0.9 Conjugated Bilirubin 0.0 Unconjugated Bilirubin 0.7 Delta Bilirubin 0.2 AST 37 ALT 52 H Alkaline Phosphatase 80 Total Protein 7.2 Albumin 4.7 TSH 0.456 L Assessment Major depressive disorder, recurrent, severe Autism spectrum disorder Borderline personality disorder Generalized anxiety disorder Plan: -Patient continues to meet criteria for inpatient psychiatric admission for symptom stabilization and safety. Patient has signed adult voluntary form and medication consent and was placed in patient's chart. -Medications: Abilify maintena 400 mg IM was administered today. BuSpar 30 mg by mouth twice a day for anxiety Increase Lamictal to 25 mg every morning and 50 mg by mouth daily at bedtime for mood stabilization Paxil 40 mg by mouth every morning and 20 mg by mouth daily at bedtime for anxiety -When necessary Ativan and Haldol for agitation/aggression. -NRT - nicotine patch -SW on board for discharge planning. Encouraged the patient to participate in milieu.
[2022-08-31 15:47] LABS: Chol/HDL Ratio 6.69 Ratio; LDL Cholesterol,Calculated 119.9 mg/dL (0.0-131.0)
[2022-08-31] MEDS: MELATONIN 5 MG TABLET PO PRN (22:21)
[2022-09-01] MEDS ORDERED: lamoTRIgine 25 MG TAB PO SCH (09:00)
[2022-09-01] MEDS: busPIRone HCl 10 MG TAB PO SCH ×2 (09:23→20:13)
[2022-09-01] MEDS: PARoxetine 20 MG TAB PO SCH ×3 (09:24→20:21)
--- NOTE | 2022-09-01 11:36 | P.PN ---
Progress Note - Text Progress Note Date: 09/01/22 Interval History: Patient was seen wandering the hallways and was directable and agreeable to speak with director underwriter sales in his room. Currently, the patient is reporting that he is feeling better today. He states that he had a good visit from his mother that the conversation went well. He continues to desire placement in different unit in order to better address his mental health symptoms. However, the patient continues to have difficulty in identifying his emotions and feelings. He is currently denying any suicidal or homicidal ideation, intention, and/or plan. Denies any urges of self-harm today. He reports no auditory or visual hallucinations. He denies any paranoia or other delusions. He reports no issues regarding his sleep or his appetite. He has been adherent with his medications and is not reporting any significant side effects. Mental Status Exam: General Appearance: Patient appears to be stated age is alert, directable, and cooperative today. Behavior: Patient is calmly lying down in bed without any agitated behavior. Speech: Patient's speech is fluent and nonpressured. Mood/Affect: Mood is "feeling better." Affect is euthymic. Suicidality/Homicidality: Patient denies having any suicidal or homicidal ideation intent or plan. Perceptions: Patient denies any visual hallucinations and denies any auditory hallucinations Though content/process: [place] and rigid. No suicidal ideation today. Memory and concentration: AOX3, grossly intact for the purposes of this session Judgment and insight: Poor at baseline Vital Signs Temp 97.7 F 09/01/22 06:28 Pulse 83 09/01/22 06:28 Resp 14 09/01/22 06:28 BP 118/69 09/01/22 06:28 Pulse Ox 99 08/30/22 18:27 FiO2 Laboratory Results - Last 24 Hours 08/31/22 08/31/22 08/31/22 06:00 06:00 06:[address] Glu mg/dL 108 Hemoglobin A1c 5.4 Triglycerides 166.00 H Cholesterol 180.00 LDL Cholesterol, Calc 119.9 VLDL Cholesterol, Calc 33.20 HDL Cholesterol 26.90 L Cholesterol/HDL Ratio 6.69 Free T4 1.150 Assessment Major depressive disorder, recurrent, severe Autism spectrum disorder Borderline personality disorder Generalized anxiety disorder Plan: -Patient continues to meet criteria for inpatient psychiatric admission for symptom stabilization and safety. Patient has signed adult voluntary form and medication consent and was placed in patient's chart. -Medications: Abilify maintena 400 mg IM was administered today. BuSpar 30 mg by mouth twice a day for anxiety Increase Lamictal to 50 mg by mouth twice a day for mood stabilization Paxil 40 mg by mouth every morning and 20 mg by mouth daily at bedtime for anxiety -When necessary Ativan and Haldol for agitation/aggression. -NRT - nicotine patch -SW on board for discharge planning. Encouraged the patient to participate in milieu.
[2022-09-01] MEDS: lamoTRIgine 25 MG TAB PO SCH (20:13)
[2022-09-01] MEDS: MELATONIN 5 MG TABLET PO PRN (21:43)
[2022-09-02] MEDS: lamoTRIgine 25 MG TAB PO SCH ×2 (08:13→20:05)
[2022-09-02] MEDS: PARoxetine 20 MG TAB PO SCH ×2 (08:13→20:05)
[2022-09-02] MEDS: busPIRone HCl 10 MG TAB PO SCH ×2 (08:13→20:05)
--- NOTE | 2022-09-02 12:53 | P.PN ---
Progress Note - Text Progress Note Date: 09/02/22 Interval History: Patient was seen wandering the hallways and was directable and agreeable to speak with procedure writer in the office. Currently, the patient is not reporting any suicidal or homicidal ideation, intention, or plan. He is not reporting any auditory or visual hallucinations. He denies any paranoia or other delusions. The patient has been a year's medication is not reporting any sleep and side effects at this time. After discussion with [facility], the decision was made for the patient to go to a nursing home on Monday. The patient acknowledges this and reports that he is willing to stay here until then. He reports that he is exercising his coping skills although continues to have difficulty in identifying his emotions. Mental Status Exam: Grossly unchanged. General Appearance: Patient appears to be stated age is alert, directable, and cooperative today. Behavior: Patient is calmly lying down in bed without any agitated behavior. Speech: Patient's speech is fluent and nonpressured. Mood/Affect: Mood is "feeling better." Affect is euthymic. Suicidality/Homicidality: Patient denies having any suicidal or homicidal ideation intent or plan. Perceptions: Patient denies any visual hallucinations and denies any auditory hallucinations Though content/process: [place] and rigid. No suicidal ideation today. Memory and concentration: AOX3, grossly intact for the purposes of this session Judgment and insight: Poor at baseline Vital Signs Temp 97.8 F 09/02/22 06:39 Pulse 96 09/02/22 06:39 Resp 14 09/02/22 06:39 BP 113/57 09/02/22 06:39 Pulse Ox 99 09/02/22 06:39 FiO2 Assessment Major depressive disorder, recurrent, severe Autism spectrum disorder Borderline personality disorder Generalized anxiety disorder Plan: -Patient continues to meet criteria for inpatient psychiatric admission for symptom stabilization and safety. Patient has signed adult voluntary form and medication consent and was placed in patient's chart. -Medications: Abilify maintena 400 mg IM was administered on 09/01/2022. BuSpar 30 mg by mouth twice a day for anxiety Continue Lamictal 50 mg by mouth twice a day for mood stabilization Paxil 40 mg by mouth every morning and 20 mg by mouth daily at bedtime for anxiety -When necessary Ativan and Haldol for agitation/aggression. -NRT - nicotine patch -SW on board for discharge planning. Encouraged the patient to participate in milieu.
[2022-09-02] MEDS: IBUPROFEN 400 MG TAB PO PRN (18:51)
[2022-09-02] MEDS: MELATONIN 5 MG TABLET PO PRN (20:52)
[2022-09-03] MEDS: lamoTRIgine 25 MG TAB PO SCH ×2 (09:38→20:19)
[2022-09-03] MEDS: PARoxetine 20 MG TAB PO SCH ×2 (09:38→20:19)
[2022-09-03] MEDS: busPIRone HCl 10 MG TAB PO SCH ×2 (09:38→20:19)
--- NOTE | 2022-09-03 21:51 | P.PN ---
Progress Note - Text Progress Note Date: 09/03/22 Interval history: Patient was seen wandering the hallways and was directable and agreeable to speak with insurance underwriter sales.He reports good mood currently except for having a panic attack earlier today that has resolved. At this time, patient denies any suicidal or homicidal ideation, intent or plan. Denies any auditory or visual hallucinations. Patient denies any side effects from the medications and has been compliant with meds. Mental status exam: General Appearance: Patient appears to be stated age is alert, directable, and cooperative. Behavior: No agitated behavior. Patient is calm and directable. Speech: Patient's speech is fluent and non-pressured. Mood/Affect: Mood is improving mildly, affect is congruent and constricted. Suicidality/Homicidality: Patient denies having any suicidal or homicidal ideation intent or plan. Perceptions: Patient denies any auditory or visual hallucinations. Though content/process: There is no evidence of any delusional thought content and thought process is linear and goal-directed. Memory and concentration: AOX3, grossly intact for the purposes of this session Judgment and insight: improving mildly Assessment/Plan: Continue with current diagnosis. Patient continues to meet criteria for inpatient psychiatric admission for symptom stabilization and safety. Patient will be maintained on current psychotropic medication regimen. Monitor for medication compliance and for any psychotropic medication side effects. Will continue to monitor ongoing response to treatment. Encouraged participation in milieu.
[2022-09-04] MEDS: PARoxetine 20 MG TAB PO SCH ×2 (08:35→20:50)
[2022-09-04] MEDS: busPIRone HCl 10 MG TAB PO SCH ×2 (08:35→20:50)
[2022-09-04] MEDS: lamoTRIgine 25 MG TAB PO SCH ×2 (08:35→20:50)
[2022-09-04] MEDS: MELATONIN 5 MG TABLET PO PRN (20:55)
--- NOTE | 2022-09-04 22:14 | P.PN ---
Progress Note - Text Progress Note Date: 09/04/22 Interval history: Patient was seen socializing with peer in the unge and was directable and agreeable to speak with board writer. He reports good mood currently but reports poor sleep. He declines offer for Trazodone to help him sleep tonight, states he prefers to not take sleep medications. At this time, patient denies any suicidal or homicidal ideation, intent or plan. Denies any auditory or visual hallucinations. Patient denies any side effects from the medications and has been compliant with meds. He shows me multiple healing self-inflicted cuts on his arms from prior to this admission. Mental status exam: General Appearance: Patient appears to be stated age, obese, has multiple healing self-inflicted cuts on his arms from prior to this admission. Behavior: No agitated behavior. Patient is calm and directable. Speech: Patient's speech is fluent and non-pressured. Mood/Affect: Mood is improving mildly, affect is congruent and constricted. Suicidality/Homicidality: Patient denies having any suicidal or homicidal ideation intent or plan. Perceptions: Patient denies any auditory or visual hallucinations. Though content/process: There is no evidence of any delusional thought content and thought process is linear and goal-directed. Memory and concentration: AOX3, grossly intact for the purposes of this session Judgment and insight: improving mildly Assessment/Plan: Continue with current diagnosis. Patient continues to meet criteria for inpatient psychiatric admission for symptom stabilization and safety. Patient will be maintained on current psychotropic medication regimen. Monitor for medication compliance and for any psychotropic medication side effects. Will continue to monitor ongoing response to treatment. Encouraged participation in milieu.
[2022-09-05 04:21] VITALS: BP 119/74; PULSE 96; RESP 16; TEMP 97.7
[2022-09-05] MEDS: PARoxetine 20 MG TAB PO SCH (08:42)
[2022-09-05] MEDS: busPIRone HCl 10 MG TAB PO SCH (08:43)
[2022-09-05] MEDS: lamoTRIgine 25 MG TAB PO SCH (08:43)
--- NOTE | 2022-09-05 11:28 | P.DS ---
Providers Date of admission: 08/30/22 00:34 Expected date of discharge: 09/05/22 Attending physician: Armani Wallis MD Consults: 08/29/22 09:26 Consult Physician Routine Consulting Provider: Psychiatry - [facility] Psychiatry Consult Reason/Comments: Psychiatric management Do you want consulting provider notified?: Yes 08/30/22 00:37 Consult Physician Routine Consulting Provider: Yenni Nielsen Consult Reason/Comments: For H & P for Medical Follow Up Do you want consulting provider notified?: Yes, Notify in am Primary care physician: [facility] Course: Patient was admitted to the unit on 08/30/2022. He had his psychiatric H&P done by Dr. Wallis on 08/29/2022 in the ER and on 08/30/2022 in the unit. He had his general H&P done by on 08/30/2022. After his psychiatric H&P he was continued on Abilify Maintena 400 mg IM, BuSpar 30 mg twice a day, Lamictal was increased to 50 mg twice a day Paxil was continued at 40 mg in the morning and 20 mg at night. He also got when necessary Haldol, Vistaril while in the hospital. He tolerated the increased dose of Lamictal well without any adverse effect. He continued to improve better, his reported symptoms of depression got better along with suicidal thoughts. He participated in group activities and individual therapy took his medications without any problem. He slowly socialized with peers. He did not show any suicidal or psychotic behavior. His treatment and discharge plans were discussed by the treatment team and it was agreed to discharge him to the crisis center for a week and then he will return to live in an apartment next to his family. He was advised to take his medications as prescribed, not to drink alcohol or he used drugs, go to the [facility] on a regular basis for ongoing therapy and medication monitoring. He agreed to follow through these recommendations. Currently he is calm polite and cooperative. He has good hygiene. He does not show any psychomotor agitation or retardation. His speech is spontaneous relevant and goal-directed. His mood is euthymic and affect is appropriate. He denies hallucinations and delusional thinking. He denies suicide and homicide thoughts. His sensorium is clear. A&P: Discharge as planned. Patient Condition at Discharge: Fair Plan - Discharge Summary New Discharge Prescriptions: New lamoTRIgine [LaMICtal] 50 mg PO BID tab Melatonin 10 mg PO HS PRN tab PRN Reason: sleep Ibuprofen [Motrin] 400 mg PO Q6HR PRN tab PRN Reason: Pain Acetaminophen Tab [Tylenol] 650 mg PO Q4HR PRN tab PRN Reason: Pain/Discomfort Continue ARIPiprazole IM [Abilify Maintena] 400 mg IM Q28D #1 vial busPIRone HCL [Buspar] 30 mg PO BID PARoxetine HCL [Paxil] 20 mg PO HS hydrOXYzine pamoate [Vistaril] 50 mg PO TID PRN PRN Reason: Anxiety Cetirizine HCl [Zyrtec] 10 mg PO DAILY PARoxetine HCL [Paxil] 40 mg PO DAILY Discontinued lamoTRIgine [LaMICtal] See Taper PO DIRECTED Discharge Medication List ARIPiprazole IM [Abilify Maintena] 400 mg IM Q28D #1 vial 12/24/20 [Rx] Cetirizine HCl [Zyrtec] 10 mg PO DAILY 07/29/21 [History] busPIRone HCL [Buspar] 30 mg PO BID 07/29/21 [History] PARoxetine HCL [Paxil] 20 mg PO HS 08/27/22 [History] PARoxetine HCL [Paxil] 40 mg PO DAILY 08/27/22 [History] hydrOXYzine pamoate [Vistaril] 50 mg PO TID PRN 08/27/22 [History] Acetaminophen Tab [Tylenol] 650 mg PO Q4HR PRN tab 09/05/22 [Rx] Ibuprofen [Motrin] 400 mg PO Q6HR PRN tab 09/05/22 [Rx] Melatonin 10 mg PO HS PRN tab 09/05/22 [Rx] lamoTRIgine [LaMICtal] 50 mg PO BID tab 09/05/22 [Rx] Follow up Appointment(s)/Referral(s): [facility] [Outside] - 09/15/22 1:30 pm (Today at 1:00 with Ulises Mistry at [facility] 09-15-22 at 1:[address] Julian at the [place] office ) [facility]inic [Primary Care Provider] - 1-2 days Activity/Diet/Wound Care/Special Instructions: Avoid the use of street drugs and alcohol. Take all prescriptions as prescribed. When you are in need of refills on your medications, please contact your medical provider and/or outpatient psychiatrist to have this done. Please go to scheduled outpatient appointment for aftercare treatment. If symptoms return or become worse, call the crisis line at and/or go to the nearest emergency room for evaluation.
[2022-09-05] MEDS: IBUPROFEN 400 MG TAB PO PRN (12:52)
== END 2022-09-05 13:00 | disposition home or self-care (01) | DRG 885 ==
LOC: EC 19:07 → 3MHU 08-30 00:34
PROVIDERS: ADMIT Psychiatry & Neurology Psychiatry; ATTEND Psychiatry & Neurology Psychiatry
DX: F33.2 Major depressive disorder, recurrent severe without psychotic features (principal); F41.0 Panic disorder [episodic paroxysmal anxiety]; F41.1 Generalized anxiety disorder; F60.3 Borderline personality disorder; F60.89 Other specific personality disorders; F84.5 Asperger's syndrome; S61.411A Laceration without foreign body of right hand, initial encounter; S61.412A Laceration without foreign body of left hand, initial encounter; W22.01XA Walked into wall, initial encounter; X78.9XXA Intentional self-harm by unspecified sharp object, initial encounter; Z56.0 Unemployment, unspecified; Z79.899 Other long term (current) drug therapy; Z20.822 Contact with and (suspected) exposure to COVID-19
CPT/HCPCS: 12002; 36415; 80053; 80061; 80076; 80306; 81001; 82075; 83036; 84439; 84443; 85025; 87635; 96372; 99284